=== PATIENT | male | born 1955 | race Caucasian/White ===

== ENCOUNTER 2019-11-21 21:11 | Inpatient (IN) | payer OTHER ==
[2019-11-21] MEDS: Albuterol/Ipratropium 3.0-0.5 MG/3 ML Neb Soln NEB PRN (21:20)
--- NOTE | 2019-11-21 21:56 | EDM.PDOC ---
ED HPI GENERAL MEDICAL PROBLEM - General Chief Complaint: General Stated Complaint: CANNOT BREATH Time Seen by Provider: 11/21/19 21:15 Source of Information: Reports: Patient History Limitations: Reports: No Limitations - History of Present Illness INITIAL COMMENTS - FREE TEXT/NARRATIVE: Patient presents to the ED for evaluation of difficulty breathing. He states he developed a dry cough 2 days ago and attributed that to seasonal allergies. 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 T\\He returned from a trip this afternoon and noticed he was having some difficulty catching his breath. This evening it got suddenly much worse and he could not catch his breath. He has not had a fever "that I know of" and denies chest pain. He has had a "scratchy throat" and some nasal drainage. He describes the cough as dry and feels like he is trying to get something out of his throat. 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 Does smoke 3-5 "[employer]" daily, does not drink alcohol. - Related Data Allergies Allergy/AdvReac Type Severity Reaction Status Date / Time No Known Allergies Allergy Verified 11/21/19 21:28 Home Meds: Home Meds Levothyroxine Sodium [Synthroid] 25 mcg PO ACBREAKFAST 01/27/16 [History] Lisinopril 10 mg PO DAILY 01/27/16 [History] Venlafaxine [Effexor] 150 mg PO DAILY 01/27/16 [History] Past Medical History HEENT History: Reports: Impaired Vision Cardiovascular History: Reports: Hypertension Respiratory History: Reports: Other (See Below) Musculoskeletal History: Reports: Fracture, Other (See Below) Other Musculoskeletal History: Hip Fx Neurological History: Reports: None. Denies: Seizure Psychiatric History: Reports: Depression Endocrine/Metabolic History: Reports: Multinodular Thyroid - Infectious Disease History Infectious Disease History: Reports: Chicken Pox - Past Surgical History HEENT Surgical History: Reports: Other (See Below) Musculoskeletal Surgical History: Reports: Other (See Below) Social & Family History - Family History Family Medical History: Noncontributory ED ROS GENERAL - Review of Systems Review Of Systems: See Below Constitutional: Reports: Chills, Diaphoresis. Denies: Fever HEENT: Reports: Rhinitis, Throat Pain. Denies: Ear Discharge, Ear Pain, Eye Discharge Respiratory: Reports: Shortness of Breath, Wheezing, Cough Cardiovascular: Denies: Chest Pain GI/Abdominal: Reports: Vomiting. Denies: Abdominal Pain, Diarrhea, Nausea Musculoskeletal: Reports: No Symptoms Skin: Reports: No Symptoms Neurological: Reports: No Symptoms ED EXAM, GENERAL - Physical Exam Exam: See Below Exam Limited By: No Limitations General Appearance: WD/WN, Severe Distress Eye Exam: Bilateral Eye: PERRL Ears: Normal External Exam, Normal Canal, Normal TMs Nose: Normal Inspection, Normal Mucosa, No Blood Throat/Mouth: Normal Inspection, Normal Oropharynx, No Airway Compromise Head: Atraumatic, Normocephalic Neck: Normal Inspection, Supple, Non-Tender, Full Range of Motion. No: Lymphadenopathy (R), Lymphadenopathy (L) Respiratory/Chest: Rhonchi, Wheezing, Accessory Muscle Use, Retractions, Other ( significant respiratory distress with substernal and intercostal restractions, tachypneic & hypoxic) Cardiovascular: Regular Rate, Rhythm Course - Vital Signs Last Recorded V/S: Last Vital Signs Temp 36.2 C 11/21/19 21:28 Pulse 92 11/21/19 21:51 Resp 20 11/21/19 21:51 BP 127/86 11/21/19 21:51 Pulse Ox 99 11/21/19 21:51 - Orders/Labs/Meds Orders: Active Orders 24 hr Category Date Time Status EKG Documentation Completion [RC] ASDIRECTED Care 11/21/19 21:59 Active RT Aerosol Therapy [RC] ASDIRECTED Care 11/21/19 22:06 Active Chest 1V Frontal [CR] Stat Exams 11/21/19 21:35 Ordered CORONAVIRUS COVID-19 PCR PHL [MREF] Stat Lab 11/21/19 21:36 Ordered CULTURE BLOOD [BC] Stat Lab 11/21/19 21:35 Ordered Albuterol/Ipratropium [DuoNeb 3.0-0.5 MG/3 ML] Med 11/21/19 21:20 Active 3 ml NEB Q2H PRN Sodium Chloride 0.9% [Saline Flush] Med 11/21/19 21:35 Active 10 ml FLUSH ASDIRECTED PRN Saline Lock Insert [OM.PC] Stat Oth 11/21/19 21:35 Ordered Medication Orders Acetaminophen (Tylenol) 650 mg PO Q4H PRN PRN Reason: Pain (Mild 1-3)/fever Albuterol/Ipratropium (Duoneb 3.0-0.5 Mg/3 Ml) 3 ml NEB Q2H PRN PRN Reason: Shortness of Breath Albuterol/Ipratropium (Duoneb 3.0-0.5 Mg/3 Ml) 3 ml NEB QID PRN PRN Reason: Shortness Of Breath/wheezing Azithromycin (Zithromax) 500 mg IV Q24H GABRIELA Ceftriaxone Sodium 1 gm/ (Sodium Chloride) 50 mls @ 100 mls/hr IV Q24H GABRIELA Ondansetron HCl (Zofran) 4 mg IV Q4H PRN PRN Reason: Nausea/Vomiting Sodium Chloride (Saline Flush) 10 ml FLUSH ASDIRECTED PRN PRN Reason: Keep Vein Open Labs: Laboratory Tests 11/21/19 11/21/19 Range/Units 21:35 21:35 WBC 9.0 (4.0-11.0) K/uL RBC 4.41 L (4.50-6.50) M/uL Hgb 13.7 (13.0-18.0) g/dL Hct 39.6 L (40.0-54.0) % MCV 90 (76-96) fL MCH 31.1 (27.0-32.0) pg MCHC 34.6 (31.0-35.0) g/dL RDW 14.4 (11.0-16.0) % Plt Count 185 (150-400) K/uL MPV 10.1 H (6.0-10.0) fL Neut % (Auto) 59.6 (45.0-70.0) % Lymph % (Auto) 27.4 (20.0-40.0) % [place] % (Auto) 9.5 (3.0-10.0) % Eos % (Auto) 2.8 (1.0-5.0) % Baso % (Auto) 0.7 H (0.0-0.5) % Neut # (Auto) 5.34 (2.00-7.50) K/uL Lymph # (Auto) 2.45 (1.50-4.00) K/uL [place] # (Auto) 0.85 H (0.20-0.80) K/uL Eos # (Auto) 0.25 (0.04-0.40) K/uL Baso # (Auto) 0.06 (0.02-0.10) K/uL Sodium 139 (136-145) mmol/L Potassium 4.1 (3.5-5.1) mmol/L Chloride 104 (98-107) mmol/L Carbon Dioxide 26.5 (21.0-32.0) mmol/L Anion Gap 12.6 (5.0-15.0) mmol/L BUN 10 (8-26) mg/dL Creatinine 1.09 D (0.70-1.30) mg/dL Est Cr Clr Drug Dosing 76.14 mL/min Estimated GFR (MDRD) > 60 (>60) MLS/MIN BUN/Creatinine Ratio 9.2 (6-25) Glucose 140 H D (74-100) mg/dL Calcium 8.4 L (8.5-10.1) mg/dL Troponin I < 0.017 (0.000-0.060) ng/mL Meds: Medications Generic Name Dose Route Start Last Admin Trade Name Freq PRN Reason Stop Dose Admin Acetaminophen 650 mg 11/21/19 22:17 Tylenol PO Q4H PRN Pain (Mild 1-3)/fever Albuterol/Ipratropium 3 ml 11/21/19 21:20 Duoneb 3.0-0.5 Mg/3 Ml NEB Q2H PRN Shortness of Breath Albuterol/Ipratropium 3 ml 11/21/19 22:17 Duoneb 3.0-0.5 Mg/3 Ml NEB QID PRN Shortness Of Breath/wheezing Azithromycin 500 mg 11/21/19 22:30 Zithromax IV Q24H GABRIELA Ceftriaxone Sodium 1 gm/ 50 mls @ 100 mls/hr 11/21/19 23:00 Sodium Chloride IV Q24H GABRIELA Ondansetron HCl 4 mg 11/21/19 22:17 Zofran IV Q4H PRN Nausea/Vomiting Sodium Chloride 10 ml 11/21/19 21:35 Saline Flush FLUSH ASDIRECTED PRN Keep Vein Open - Re-Assessments/Exams Free Text/Narrative Re-Assessment/Exam: 11/21/19 22:29 This patient presents to the ED for evaluation of difficulty breathing. History and clinical findings are most consistent with pneumonia. He had an excellent response to 1 duoneb administered in the ED with significant decrease in work of breathing, tachypnea, and hypoxia. He continues to require 10L oxygen via non -rebreather mask to maintain saturation > 92%. He will be admitted to the inpatient unit on observation status for continued care. Departure - Departure Time of Disposition: 22:30 Disposition: Refer to Observation Condition: Fair Clinical Impression: Pneumonia - Discharge Information *PRESCRIPTION DRUG MONITORING PROGRAM REVIEWED*: Not Applicable Sepsis Event Note - Evaluation Sepsis Screening Result: No Definite Risk - Focused Exam Vital Signs: Vital Signs Temp Pulse Resp BP Pulse Ox 11/21/19 21:51 92 20 127/86 99 11/21/19 21:40 95 11/21/19 21:31 95 11/21/19 21:28 36.2 C 101 H 18 174/88 H 80 L 11/21/19 21:22 36.2 C 10 L 22 H 174/88 H 80 L Date Exam was Performed: 11/21/19 Time Exam was Performed: 22:28 - My Orders Last 24 Hours: My Active Orders 11/21/19 21:20 Albuterol/Ipratropium [DuoNeb 3.0-0.5 MG/3 ML] 3 ml NEB Q2H PRN 11/21/19 21:35 Chest 1V Frontal [CR] Stat CULTURE BLOOD [BC] Stat Sodium Chloride 0.9% [Saline Flush] 10 ml FLUSH ASDIRECTED PRN Saline Lock Insert [OM.PC] Stat 11/21/19 21:36 CORONAVIRUS COVID-19 PCR PHL [MREF] Stat 11/21/19 21:59 EKG Documentation Completion [RC] ASDIRECTED 11/21/19 22:06 RT Aerosol Therapy [RC] ASDIRECTED - Assessment/Plan Last 24 Hours: My Active Orders 11/21/19 21:20 Albuterol/Ipratropium [DuoNeb 3.0-0.5 MG/3 ML] 3 ml NEB Q2H PRN 11/21/19 21:35 Chest 1V Frontal [CR] Stat CULTURE BLOOD [BC] Stat Sodium Chloride 0.9% [Saline Flush] 10 ml FLUSH ASDIRECTED PRN Saline Lock Insert [OM.PC] Stat 11/21/19 21:36 CORONAVIRUS COVID-19 PCR PHL [MREF] Stat 11/21/19 21:59 EKG Documentation Completion [RC] ASDIRECTED 11/21/19 22:06 RT Aerosol Therapy [RC] ASDIRECTED
[2019-11-21] MEDS ORDERED: Ondansetron 4 MG/2 ML SDV IV PRN (22:17)
[2019-11-21] MEDS ORDERED: Acetaminophen 325 MG Tab PO PRN (22:17)
[2019-11-21] MEDS: cefTRIAXone 1 GM in Sodium Chloride 0.9% 50 ML IV SCH (23:00)
--- NOTE | 2019-11-21 23:06 | PCM.HP.2 ---
H&P History of Present Illness - General Date of Service: 11/21/19 Admit Problem/Dx: Admission Diagnosis/Problem Admission Diagnosis/Problem Pneumonia Source of Information: Patient History Limitations: Reports: No Limitations - History of Present Illness Initial Comments - Free Text/Narative: This patient presents to the ED for evaluation of difficulty breathing. See ED record for detailed HPI. Onset of Symptoms: Reports: Sudden Symptom Onset Date: 11/19/19 Duration of Symptoms: Reports: Getting Worse Location: Reports: Chest Severity: Moderate Improves with: Reports: None Worsens with: Reports: None Context: Reports: Travel Associated Symptoms: Reports: Cough, Fever/Chills, Shortness of Breath. Denies : Headaches, Nausea/Vomiting, Weakness - Related Data Allergies/Adverse Reactions: Allergies Allergy/AdvReac Type Severity Reaction Status Date / Time No Known Allergies Allergy Verified 11/21/19 21:28 Home Medications: Home Meds Levothyroxine Sodium [Synthroid] 25 mcg PO ACBREAKFAST 01/27/16 [History] Lisinopril 10 mg PO DAILY 01/27/16 [History] Venlafaxine [Effexor] 150 mg PO DAILY 01/27/16 [History] Past Medical History HEENT History: Reports: Impaired Vision Cardiovascular History: Reports: Hypertension Respiratory History: Reports: Other (See Below) Musculoskeletal History: Reports: Fracture, Other (See Below) Other Musculoskeletal History: Hip Fx Neurological History: Reports: None. Denies: Seizure Psychiatric History: Reports: Depression Endocrine/Metabolic History: Reports: Multinodular Thyroid - Infectious Disease History Infectious Disease History: Reports: Chicken Pox - Past Surgical History HEENT Surgical History: Reports: Other (See Below) Musculoskeletal Surgical History: Reports: Other (See Below) Social & Family History - Family History Family Medical History: Noncontributory - Tobacco Use Smoking Status *Q: Current Every Day Smoker Years of Tobacco use: 34 Packs/Tins Daily: 0.5 - Caffeine Use Caffeine Use: Reports: Coffee - Recreational Drug Use Recreational Drug Use: No H&P Review of Systems - Review of Systems: Review Of Systems: See Below General: Reports: Chills, Diaphoresis. Denies: Fever, Decreased Appetite HEENT: Reports: No Symptoms, Rhinitis, Sore Throat. Denies: Ear Pain, Eye Pain , Headaches Pulmonary: Reports: Shortness of Breath, Wheezing, Cough. Denies: Sputum Cardiovascular: Reports: Dyspnea on Exertion. Denies: Chest Pain, Palpitations Gastrointestinal: Denies: Abdominal Pain, Diarrhea, Nausea, Vomiting Musculoskeletal: Reports: No Symptoms Skin: Reports: No Symptoms Neurological: Reports: No Symptoms Exam - Exam Exam: See Below - Vital Signs Vital Signs: Last Vital Signs Temp 36.9 C 11/21/19 22:17 Pulse 64 11/21/19 22:17 Resp 16 11/21/19 22:17 BP 72/40 L 11/21/19 22:17 Pulse Ox 99 11/21/19 21:51 Weight: 98.974 kg - Exam Quality Assessment: Supplemental Oxygen General: Alert, Oriented, Cooperative, Mild Distress HEENT: PERRLA, Conjunctiva Clear, EOMI, Mucosa Moist & [place], Nares Patent, Normal Nasal Septum, Posterior Pharynx Clear, Pupils Equal, Pupils Reactive Neck: Supple, Trachea Midline Lungs: Decreased Breath Sounds, Rhonchi, Other (mild intercostal restraction; some bilateral rhonchi) Cardiovascular: Regular Rate, Regular Rhythm GI/Abdominal Exam: Soft, Non-Tender, No Distention Extremities: Normal Inspection, Normal Range of Motion, Non-Tender, No Pedal Edema, Normal Capillary Refill Skin: Warm, Dry, Intact Neuro Extensive - Mental Status: Oriented x3, Normal Mood/Affect - Patient Data Lab Results Last 24 hrs: Laboratory Results - last 24 hr 11/21/19 11/21/19 Range/Units 21:35 21:35 WBC 9.0 (4.0-11.0) K/uL RBC 4.41 L (4.50-6.50) M/uL Hgb 13.7 (13.0-18.0) g/dL Hct 39.6 L (40.0-54.0) % MCV 90 (76-96) fL MCH 31.1 (27.0-32.0) pg MCHC 34.6 (31.0-35.0) g/dL RDW 14.4 (11.0-16.0) % Plt Count 185 (150-400) K/uL MPV 10.1 H (6.0-10.0) fL Neut % (Auto) 59.6 (45.0-70.0) % Lymph % (Auto) 27.4 (20.0-40.0) % [place] % (Auto) 9.5 (3.0-10.0) % Eos % (Auto) 2.8 (1.0-5.0) % Baso % (Auto) 0.7 H (0.0-0.5) % Neut # (Auto) 5.34 (2.00-7.50) K/uL Lymph # (Auto) 2.45 (1.50-4.00) K/uL [place] # (Auto) 0.85 H (0.20-0.80) K/uL Eos # (Auto) 0.25 (0.04-0.40) K/uL Baso # (Auto) 0.06 (0.02-0.10) K/uL Sodium 139 (136-145) mmol/L Potassium 4.1 (3.5-5.1) mmol/L Chloride 104 (98-107) mmol/L Carbon Dioxide 26.5 (21.0-32.0) mmol/L Anion Gap 12.6 (5.0-15.0) mmol/L BUN 10 (8-26) mg/dL Creatinine 1.09 D (0.70-1.30) mg/dL Est Cr Clr Drug Dosing 76.14 mL/min Estimated GFR (MDRD) > 60 (>60) MLS/MIN BUN/Creatinine Ratio 9.2 (6-25) Glucose 140 H D (74-100) mg/dL Calcium 8.4 L (8.5-10.1) mg/dL Troponin I < 0.017 (0.000-0.060) ng/mL Result Diagrams: 11/21/19 21:35 11/21/19 21:35 Baron Results Last 24 hrs: Microbiology 11/21/19 12:35 Influenza Type A Antigen Screen - Final Nasal, Right NEGATIVE INFLUENZA A VIRUS AG REFERENCE RANGE: NEGATIVE Influenza Type B Antigen Screen - Final NEGATIVE INFLUENZA B VIRUS AG REFERENCE RANGE: NEGATIVE EKG INTERPRETATION EKG Date: 11/21/19 Time: 20:54 Rhythm: NSR Rate (Beats/Min): 86 [place]: Normal P-Wave: Present QRS: Normal ST-T: Normal QT: Prolonged Comparison: NA - No Prior EKG Sepsis Event Note - Evaluation Sepsis Screening Result: No Definite Risk - Focused Exam Vital Signs: Vital Signs Temp Temp Pulse Resp BP Pulse Ox 03/26/20 22:17 36.9 C 64 16 72/40 L 11/21/19 21:51 92 20 127/86 99 11/21/19 21:40 95 11/21/19 21:31 95 11/21/19 21:28 36.2 C 101 H 18 174/88 H 80 L 11/21/19 21:22 36.2 C 10 L 22 H 174/88 H 80 L Date Exam was Performed: 11/21/19 Time Exam was Performed: 23:00 - Problem List (1) Pneumonia SNOMED Code(s): 263810809 ICD Code: J18.9 - PNEUMONIA, UNSPECIFIED ORGANISM Status: Acute Priority : High Current Visit: Yes Qualifiers: Pneumonia type: due to unspecified organism Laterality: bilateral Lung location: unspecified part of lung Qualified Code(s): J18.9 - Pneumonia, unspecified organism Problem List Initiated/Reviewed/Updated: Yes Orders Last 24hrs: Active Orders 24 hr Category Date Time Status Admission Status [Patient Status] [ADT] Routine ADT 11/21/19 22:16 Active Patient Status [ADT] Routine ADT 11/21/19 22:17 Active Ambulate [RC] PER UNIT ROUTINE Care 11/21/19 22:18 Active EKG Documentation Completion [RC] ASDIRECTED Care 11/21/19 21:59 Active Oxygen Therapy [RC] PRN Care 11/21/19 22:17 Active RT Aerosol Therapy [RC] ASDIRECTED Care 11/21/19 22:06 Active RT Aerosol Therapy [RC] ASDIRECTED Care 11/21/19 22:20 Active VTE/DVT Education [RC] Per Unit Routine Care 11/21/19 22:17 Active Vital Signs [RC] Q4H Care 11/21/19 22:17 Active Regular Diet [DIET] Diet 11/22/19 Breakfast Ordered Chest 1V Frontal [CR] Stat Exams 11/21/19 21:35 Taken CORONAVIRUS COVID-19 PCR PHL [MREF] Stat Lab 11/21/19 21:45 Ordered CULTURE BLOOD [BC] Stat Lab 11/21/19 21:40 Received Acetaminophen [Tylenol] Med 11/21/19 22:17 Active 650 mg PO Q4H PRN Albuterol/Ipratropium [DuoNeb 3.0-0.5 MG/3 ML] Med 11/21/19 21:20 Active 3 ml NEB Q2H PRN Albuterol/Ipratropium [DuoNeb 3.0-0.5 MG/3 ML] Med 11/21/19 22:17 Active 3 ml NEB QID PRN Azithromycin [Zithromax] Med 11/21/19 23:00 Active 500 mg IV Q24H Ondansetron [Zofran] Med 11/21/19 22:17 Active 4 mg IV Q4H PRN Sodium Chloride 0.9% [Saline Flush] Med 11/21/19 21:35 Active 10 ml FLUSH ASDIRECTED PRN cefTRIAXone [Rocephin] 1 gm Med 11/21/19 23:00 Active Sodium Chloride 0.9% [Normal Saline] 50 ml IV Q24H Saline Lock Insert [OM.PC] Stat Oth 11/21/19 21:35 Ordered Resuscitation Status Routine Resus Stat 11/21/19 22:17 Ordered Medication Orders Acetaminophen (Tylenol) 650 mg PO Q4H PRN PRN Reason: Pain (Mild 1-3)/fever Albuterol/Ipratropium (Duoneb 3.0-0.5 Mg/3 Ml) 3 ml NEB Q2H PRN PRN Reason: Shortness of Breath Albuterol/Ipratropium (Duoneb 3.0-0.5 Mg/3 Ml) 3 ml NEB QID PRN PRN Reason: Shortness Of Breath/wheezing Azithromycin (Zithromax) 500 mg IV Q24H GABRIELA Ceftriaxone Sodium 1 gm/ (Sodium Chloride) 50 mls @ 100 mls/hr IV Q24H GABRIELA Ondansetron HCl (Zofran) 4 mg IV Q4H PRN PRN Reason: Nausea/Vomiting Sodium Chloride (Saline Flush) 10 ml FLUSH ASDIRECTED PRN PRN Reason: Keep Vein Open Assessment/Plan Comment:: Ceftriaxone 1 gm q. 24 hours Azithromycin 500 mg q. 24 hours Supplemental oxygen to keep SaO2 >92% Covid-19 pending
--- NOTE | 2019-11-22 00:32 | CR ---
CLINICAL DATA: SOB. FRONTAL VIEW OF THE CHEST, 21 NOVEMBER 2019: Comparison made to a prior exam dated January 26, 2016. The heart size is at the upper limits of normal. There is calcification of the aortic arch. There are patchy infiltrates in both lungs, consistent with pneumonia. Congestive failure with pulmonary edema should be considered. No other significant findings. No pneumothorax. No pleural effusions. Follow up is recommended. Job: [id number] [facility]
[2019-11-22] MEDS: Albuterol/Ipratropium 3.0-0.5 MG/3 ML Neb Soln NEB PRN ×3 (11:14→17:14)
--- NOTE | 2019-11-22 11:22 | PCM.PN ---
- General Info Date of Service: 11/22/19 Admission Dx/Problem (Free Text): Admission Diagnosis/Problem Admission Diagnosis/Problem Pneumonia Subjective Update: Patient reports feeling better this morning. He had some shortness of breath after returning to bed from bathroom. He is down to 4 L per nasal cannula to keep saturations greater than 92%. Appetite decreased yet but is drinking fluids. Denies nausea, vomiting, or diarrhea. Continues to have a dry cough. Denies chest pain. Functional Status: Reports: Tolerating Diet - Review of Systems General: Denies: Fever HEENT: Denies: Ear Pain, Eye Pain, Headaches, Sore Throat Pulmonary: Reports: Shortness of Breath, Cough Cardiovascular: Denies: Chest Pain, Palpitations, Dyspnea on Exertion Gastrointestinal: Denies: Abdominal Pain, Diarrhea, Nausea, Vomiting Musculoskeletal: Reports: No Symptoms Skin: Reports: No Symptoms Neurological: Reports: No Symptoms - Patient Data Vitals - Most Recent: Last Vital Signs Temp 36.6 C 11/22/19 08:00 Pulse 58 L 11/22/19 08:00 Resp 14 11/22/19 08:00 BP 94/54 L 11/22/19 08:00 Pulse Ox 91 L 11/22/19 08:00 Weight - Most Recent: 98.974 kg Lab Results Last 24 Hours: Laboratory Results - last 24 hr 11/21/19 11/21/19 Range/Units 21:35 21:35 WBC 9.0 (4.0-11.0) K/uL RBC 4.41 L (4.50-6.50) M/uL Hgb 13.7 (13.0-18.0) g/dL Hct 39.6 L (40.0-54.0) % MCV 90 (76-96) fL MCH 31.1 (27.0-32.0) pg MCHC 34.6 (31.0-35.0) g/dL RDW 14.4 (11.0-16.0) % Plt Count 185 (150-400) K/uL MPV 10.1 H (6.0-10.0) fL Neut % (Auto) 59.6 (45.0-70.0) % Lymph % (Auto) 27.4 (20.0-40.0) % [place] % (Auto) 9.5 (3.0-10.0) % Eos % (Auto) 2.8 (1.0-5.0) % Baso % (Auto) 0.7 H (0.0-0.5) % Neut # (Auto) 5.34 (2.00-7.50) K/uL Lymph # (Auto) 2.45 (1.50-4.00) K/uL [place] # (Auto) 0.85 H (0.20-0.80) K/uL Eos # (Auto) 0.25 (0.04-0.40) K/uL Baso # (Auto) 0.06 (0.02-0.10) K/uL Sodium 139 (136-145) mmol/L Potassium 4.1 (3.5-5.1) mmol/L Chloride 104 (98-107) mmol/L Carbon Dioxide 26.5 (21.0-32.0) mmol/L Anion Gap 12.6 (5.0-15.0) mmol/L BUN 10 (8-26) mg/dL Creatinine 1.09 D (0.70-1.30) mg/dL Est Cr Clr Drug Dosing 76.14 mL/min Estimated GFR (MDRD) > 60 (>60) MLS/MIN BUN/Creatinine Ratio 9.2 (6-25) Glucose 140 H D (74-100) mg/dL Calcium 8.4 L (8.5-10.1) mg/dL Troponin I < 0.017 (0.000-0.060) ng/mL Baron Results Last 24 Hours: Microbiology 11/21/19 12:35 Influenza Type A Antigen Screen - Final Nasal, Right NEGATIVE INFLUENZA A VIRUS AG REFERENCE RANGE: NEGATIVE Influenza Type B Antigen Screen - Final NEGATIVE INFLUENZA B VIRUS AG REFERENCE RANGE: NEGATIVE Med Orders - Current: Current Medications Acetaminophen (Tylenol) 650 mg PO Q4H PRN PRN Reason: Pain (Mild 1-3)/fever Albuterol/Ipratropium (Duoneb 3.0-0.5 Mg/3 Ml) 3 ml NEB QID PRN PRN Reason: Shortness Of Breath/wheezing Last Admin: 11/22/19 11:14 Dose: 3 ml Azithromycin (Zithromax) 500 mg IV Q24H GABRIELA Last Admin: 11/22/19 00:00 Dose: 500 mg Ceftriaxone Sodium 1 gm/ (Sodium Chloride) 50 mls @ 100 mls/hr IV Q24H [facility] Last Admin: 11/21/19 23:00 Dose: 100 mls/hr Ondansetron HCl (Zofran) 4 mg IV Q4H PRN PRN Reason: Nausea/Vomiting Sodium Chloride (Saline Flush) 10 ml FLUSH ASDIRECTED PRN PRN Reason: Keep Vein Open Discontinued Medications Albuterol/Ipratropium (Duoneb 3.0-0.5 Mg/3 Ml) 3 ml NEB Q2H PRN PRN Reason: Shortness of Breath Stop: 11/22/19 00:30 Last Admin: 11/21/19 21:20 Dose: 3 ml - Exam Quality Assessment: Supplemental Oxygen General: Alert, Oriented, Cooperative, No Acute Distress HEENT: Pupils Equal, Pupils Reactive, EOMI, Mucous Membr. Moist/[place] Neck: Supple Lungs: Clear to Auscultation, Normal Respiratory Effort, Wheezing (occasional expiratory wheezes) GI/Abdominal Exam: Soft, Non-Tender, No Distention Skin: Warm, Dry, Intact Neurological: No New Focal Deficit Psy/Mental Status: Alert, Normal Affect, Normal Mood Sepsis Event Note - Evaluation Sepsis Screening Result: No Definite Risk - Focused Exam Vital Signs: Vital Signs Temp Pulse Resp BP Pulse Ox Pulse Ox 11/22/19 08:00 36.6 C 58 L 14 94/54 L 91 L 91 L 11/22/19 04:00 36.7 C 56 L 16 88/52 L 93 L 11/22/19 00:00 36.7 C 74 16 72/46 L 96 Date Exam was Performed: 11/22/19 Time Exam was Performed: 11:37 - Problem List & Annotations (1) Pneumonia SNOMED Code(s): 904927487 Code(s): J18.9 - PNEUMONIA, UNSPECIFIED ORGANISM Status: Acute Priority: High Current Visit: Yes Qualifiers: Pneumonia type: due to unspecified organism Laterality: bilateral Lung location: unspecified part of lung Qualified Code(s): J18.9 - Pneumonia, unspecified organism - Problem List Review Problem List Initiated/Reviewed/Updated: No - My Orders Last 24 Hours: My Active Orders 11/21/19 21:35 Sodium Chloride 0.9% [Saline Flush] 10 ml FLUSH ASDIRECTED PRN Saline Lock Insert [OM.PC] Stat 11/21/19 21:40 CULTURE BLOOD [BC] Stat 11/21/19 21:45 CORONAVIRUS COVID-19 PCR PHL [MREF] Stat 11/21/19 22:16 Admission Status [Patient Status] [ADT] Routine 11/21/19 22:17 Patient Status [ADT] Routine Oxygen Therapy [RC] 08,20 Vital Signs [RC] Q4H Acetaminophen [Tylenol] 650 mg PO Q4H PRN Albuterol/Ipratropium [DuoNeb 3.0-0.5 MG/3 ML] 3 ml NEB QID PRN Ondansetron [Zofran] 4 mg IV Q4H PRN Resuscitation Status Routine 11/21/19 22:20 RT Aerosol Therapy [RC] ASDIRECTED 11/21/19 23:00 Azithromycin [Zithromax] 500 mg IV Q24H cefTRIAXone [Rocephin] 1 gm Sodium Chloride 0.9% [Normal Saline] 50 ml IV Q24H 11/22/19 Breakfast Regular Diet [DIET] - Assessment Assessment:: Continue to wean supplemental oxygen to keep saturations greater than 92% - Plan Plan:: Ceftriaxone 1 gm q. 24 hours Azithromycin 500 mg q. 24 hours Supplemental oxygen to keep SaO2 >92% Covid-19 pending 11/22/2019 As above.
[2019-11-22] MEDS ORDERED: Mirtazapine 15 MG Tab PO SCH (20:00)
[2019-11-22] MEDS ORDERED: Mirtazapine 15 MG Tab PO ONE (20:15)
[2019-11-22] MEDS: Sodium Chloride 0.9% 10 ML Syringe FLUSH PRN (20:30)
[2019-11-22] MEDS ORDERED: Azithromycin 500 MG Vial ONE (22:41)
[2019-11-22] MEDS: Azithromycin 500 MG AdvVial IV SCH ×2 (23:00)
[2019-11-23] MEDS: cefTRIAXone 1 GM in Sodium Chloride 0.9% 50 ML IV SCH ×2 (00:21→22:01)
[2019-11-23] MEDS ORDERED: LEVOTHYROXINE 200 MCG PO SCH (07:00)
[2019-11-23] MEDS: Levothyroxine 25 MCG Tab PO SCH (09:44)
[2019-11-23] MEDS: Levothyroxine 100 MCG Tab PO SCH (09:44)
[2019-11-23] MEDS: Albuterol/Ipratropium 3.0-0.5 MG/3 ML Neb Soln NEB PRN ×2 (09:44→16:32)
[2019-11-23] MEDS: Sertraline 50 MG Tab PO SCH (09:45)
[2019-11-23] MEDS: Lisinopril 10 MG Tab PO SCH (09:45)
--- NOTE | 2019-11-23 16:09 | PCM.PN ---
- General Info Date of Service: 11/23/19 Admission Dx/Problem (Free Text): Admission Diagnosis/Problem Admission Diagnosis/Problem Pneumonia Subjective Update: Patient states he feels better today but continues to become SOB when up moving around in his room. VSS, continues afebrile. Oxygen saturation decreases to low 80s when out of supplemental oxygen-saturation remains greater than 92 in 2 L nasal canula. Appetite still fair, drinking fluids. No vomiting or diarrhea. Functional Status: Reports: Pain Controlled - Review of Systems General: Denies: Fever HEENT: Reports: No Symptoms Pulmonary: Reports: Shortness of Breath, Cough Cardiovascular: Denies: Chest Pain Gastrointestinal: Denies: Abdominal Pain, Diarrhea, Nausea, Vomiting Musculoskeletal: Reports: No Symptoms Skin: Reports: No Symptoms Neurological: Reports: No Symptoms - Patient Data Vitals - Most Recent: Last Vital Signs Temp 37.2 C 11/23/19 12:00 Pulse 87 11/23/19 12:00 Resp 15 11/23/19 12:00 BP 107/67 11/23/19 12:00 Pulse Ox 92 L 11/23/19 12:00 Weight - Most Recent: 98.974 kg I&O - Last 24 Hours: Intake & Output 11/23/19 11/23/19 11/23/19 06:59 14:59 22:59 Intake Total 100 Balance 100 Baron Results Last 24 Hours: Microbiology 11/21/19 21:40 Aerobic Blood Culture - Preliminary Blood NO GROWTH AFTER 1 DAY Anaerobic Blood Culture - Preliminary NO GROWTH AFTER 1 DAY Med Orders - Current: Current Medications Acetaminophen (Tylenol) 650 mg PO Q4H PRN PRN Reason: Pain (Mild 1-3)/fever Albuterol/Ipratropium (Duoneb 3.0-0.5 Mg/3 Ml) 3 ml NEB QID PRN PRN Reason: Shortness Of Breath/wheezing Last Admin: 11/23/19 09:44 Dose: 3 ml Azithromycin (Zithromax) 500 mg IV Q24H [facility] Last Admin: 11/22/19 23:00 Dose: 500 mg Doxazosin Mesylate (Cardura) 2 mg PO BEDTIME [facility] Ceftriaxone Sodium 1 gm/ (Sodium Chloride) 50 mls @ 100 mls/hr IV Q24H [facility] Last Admin: 11/23/19 00:21 Dose: 100 mls/hr Levothyroxine Sodium (Levothyroxine) 25 mcg PO ACBREAKFAST [facility] Last Admin: 11/23/19 09:44 Dose: 25 mcg Levothyroxine Sodium (Synthroid) 200 mcg PO ACBREAKFAST [facility] Last Admin: 11/23/19 09:44 Dose: 200 mcg Lisinopril (Prinivil) 10 mg PO DAILY [facility] Last Admin: 11/23/19 09:45 Dose: Not Given Methylprednisolone Sodium Succinate (Solu-Medrol) 125 mg IVPUSH Q12H [facility] Mirtazapine (Remeron) 15 mg PO BEDTIME [facility] Non-Formulary Medication (Cholecalciferol (Vitamin D3) [Vitamin D3]) 1 tab PO DAILY [facility] Non-Formulary Medication (Gabapentin Enacarbil [Horizant]) 600 mg PO BEDTIME [facility] Ondansetron HCl (Zofran) 4 mg IV Q4H PRN PRN Reason: Nausea/Vomiting Sertraline HCl (Zoloft) 50 mg PO DAILY [facility] Last Admin: 11/23/19 09:45 Dose: 50 mg Sodium Chloride (Saline Flush) 10 ml FLUSH ASDIRECTED PRN PRN Reason: Keep Vein Open Last Admin: 11/22/19 20:30 Dose: 10 ml Discontinued Medications Albuterol/Ipratropium (Duoneb 3.0-0.5 Mg/3 Ml) 3 ml NEB Q2H PRN PRN Reason: Shortness of Breath Stop: 11/22/19 00:30 Last Admin: 11/22/19 17:13 Dose: 3 ml Azithromycin (Zithromax) Confirm Administered Dose 500 mg .ROUTE .STK-MED ONE Stop: 11/22/19 22:42 Last Admin: 11/23/19 00:01 Dose: Not Given Mirtazapine (Remeron) 15 mg PO BEDTIME [facility] Last Admin: 11/22/19 20:20 Dose: 15 mg Mirtazapine (Remeron) 15 mg PO BEDTIME ONE Stop: 11/22/19 20:16 Last Admin: 11/22/19 20:30 Dose: 15 mg - Exam Quality Assessment: Supplemental Oxygen General: Alert, Oriented, Cooperative, No Acute Distress HEENT: Pupils Equal, Pupils Reactive, EOMI, Mucous Membr. Moist/[employer] Neck: Supple Lungs: Clear to Auscultation, Normal Respiratory Effort Cardiovascular: Regular Rate, Regular Rhythm GI/Abdominal Exam: Soft, Non-Tender, No Distention Back Exam: Normal Inspection Extremities: Normal Inspection Skin: Warm, Dry Neurological: No New Focal Deficit Sepsis Event Note - Evaluation Sepsis Screening Result: No Definite Risk - Focused Exam Vital Signs: Vital Signs Temp Pulse Resp BP BP Pulse Ox 11/23/19 12:00 37.2 C 87 15 107/67 92 L 11/23/19 09:45 127/67 11/23/19 08:00 36.3 C 92 15 127/67 92 L Date Exam was Performed: 11/23/19 Time Exam was Performed: 16:04 - Problem List & Annotations (1) Pneumonia SNOMED Code(s): 100145828 Code(s): J18.9 - PNEUMONIA, UNSPECIFIED ORGANISM Status: Acute Priority: High Current Visit: Yes Qualifiers: Pneumonia type: due to unspecified organism Laterality: bilateral Lung location: unspecified part of lung Qualified Code(s): J18.9 - Pneumonia, unspecified organism - Problem List Review Problem List Initiated/Reviewed/Updated: No - My Orders Last 24 Hours: My Active Orders 11/23/19 07:00 Levothyroxine 25 mcg PO ACBREAKFAST Levothyroxine [Synthroid] 200 mcg PO ACBREAKFAST 11/23/19 08:00 Sertraline [Zoloft] 50 mg PO DAILY lisinopriL [Prinivil] 10 mg PO DAILY 11/23/19 15:59 Admission Status [Patient Status] [ADT] Routine 11/23/19 16:00 methylPREDNISolone Sod Succ [Solu-MEDROL] 125 mg IVPUSH Q12H 11/23/19 20:00 Doxazosin [Cardura] 2 mg PO BEDTIME Gabapentin Enacarbil [Horizant] 600 mg PO BEDTIME Mirtazapine [Remeron] 15 mg PO BEDTIME 11/24/19 08:00 Cholecalciferol (Vitamin D3) [Vitamin D3] 1 tab PO DAILY - Assessment Assessment:: Continue to wean supplemental oxygen to keep saturations greater than 92% - Plan Plan:: Ceftriaxone 1 gm q. 24 hours Azithromycin 500 mg q. 24 hours Supplemental oxygen to keep SaO2 >92% Covid-19 pending 11/22/2019 As above. As above. Add solu-medrol 125 mg IV q. 12 hours Continue to try weaning to room air.
[2019-11-23] MEDS: methylPREDNISolone Sodium Succinate 125 MG/2 ML SDV IVPUSH SCH (16:22)
[2019-11-23] MEDS ORDERED: Azithromycin 500 MG Vial ONE (19:41)
[2019-11-23] MEDS ORDERED: DOXAZOSIN 2 MG PO SCH (20:00)
[2019-11-23] MEDS: Sodium Chloride 0.9% 10 ML Syringe FLUSH PRN (20:15)
[2019-11-23] MEDS: Mirtazapine 15 MG Tab PO SCH (20:19)
[2019-11-23] MEDS: Azithromycin 500 MG AdvVial IV SCH ×2 (20:19→23:04)
[2019-11-23] MEDS ORDERED: Doxazosin 2 MG Tab ONE (20:38)
[2019-11-23] MEDS ORDERED: Gabapentin 600 MG Tab ONE (20:39)
[2019-11-23] MEDS: Gabapentin 600 MG Tab PO SCH (20:59)
[2019-11-23] MEDS: Doxazosin 2 MG Tab PO SCH (20:59)
[2019-11-24] MEDS: methylPREDNISolone Sodium Succinate 125 MG/2 ML SDV IVPUSH SCH ×2 (04:00→16:15)
[2019-11-24] MEDS: Levothyroxine 25 MCG Tab PO SCH (08:11)
[2019-11-24] MEDS: Lisinopril 10 MG Tab PO SCH (08:11)
[2019-11-24] MEDS: Levothyroxine 100 MCG Tab PO SCH (08:11)
[2019-11-24] MEDS: Sertraline 50 MG Tab PO SCH (08:12)
[2019-11-24] MEDS: Cholecalciferol (Vitamin D3) 25 MCG Tab PO SCH (12:40)
[2019-11-24] MEDS: Albuterol/Ipratropium 3.0-0.5 MG/3 ML Neb Soln NEB PRN (14:42)
--- NOTE | 2019-11-24 15:16 | PCM.PN ---
- General Info Date of Service: 11/24/19 Admission Dx/Problem (Free Text): Admission Diagnosis/Problem Admission Diagnosis/Problem Pneumonia Subjective Update: VSS, afebrile. Continues to cough and require oxygen to keep saturations greater than 92%; down to 1L nasal cannula. Denies pain. Denies any new concerns or complaints. Functional Status: Reports: Pain Controlled - Review of Systems General: Denies: Fever HEENT: Reports: No Symptoms Pulmonary: Reports: No Symptoms Cardiovascular: Reports: No Symptoms Gastrointestinal: Reports: No Symptoms Genitourinary: Reports: No Symptoms Musculoskeletal: Reports: No Symptoms Skin: Reports: No Symptoms Neurological: Reports: No Symptoms - Patient Data Vitals - Most Recent: Last Vital Signs Temp 37.0 C 11/24/19 12:00 Pulse 84 11/24/19 12:00 Resp 16 11/24/19 12:00 BP 99/61 11/24/19 12:00 Pulse Ox 94 L 11/24/19 12:00 Weight - Most Recent: 98.974 kg I&O - Last 24 Hours: Intake & Output 11/24/19 11/24/19 11/24/19 06:59 14:59 22:59 Intake Total 50 Balance 50 Baron Results Last 24 Hours: Microbiology 11/21/19 21:40 Aerobic Blood Culture - Preliminary Blood NO GROWTH AFTER 2 DAYS Anaerobic Blood Culture - Preliminary NO GROWTH AFTER 2 DAYS Med Orders - Current: Current Medications Acetaminophen (Tylenol) 650 mg PO Q4H PRN PRN Reason: Pain (Mild 1-3)/fever Albuterol/Ipratropium (Duoneb 3.0-0.5 Mg/3 Ml) 3 ml NEB QID PRN PRN Reason: Shortness Of Breath/wheezing Last Admin: 11/24/19 14:42 Dose: 3 ml Azithromycin (Zithromax) 500 mg IV Q24H [facility] Last Admin: 11/23/19 23:04 Dose: Not Given Cholecalciferol (Vitamin D3) 125 mcg PO DAILY [facility] Last Admin: 11/24/19 12:40 Dose: 125 mcg Doxazosin Mesylate (Cardura) 2 mg PO BEDTIME [facility] Last Admin: 11/23/19 20:59 Dose: 2 mg Gabapentin (Neurontin) 600 mg PO BEDTIME [facility] Last Admin: 11/23/19 20:59 Dose: 600 mg Ceftriaxone Sodium 1 gm/ (Sodium Chloride) 50 mls @ 100 mls/hr IV Q24H [facility] Last Admin: 11/23/19 22:01 Dose: 100 mls/hr Levothyroxine Sodium (Levothyroxine) 25 mcg PO ACBREAKFAST [facility] Last Admin: 11/24/19 08:11 Dose: 25 mcg Levothyroxine Sodium (Synthroid) 200 mcg PO ACBREAKFAST [facility] Last Admin: 11/24/19 08:11 Dose: 200 mcg Lisinopril (Prinivil) 10 mg PO DAILY [facility] Last Admin: 11/24/19 08:11 Dose: Not Given Methylprednisolone Sodium Succinate (Solu-Medrol) 125 mg IVPUSH Q12H [facility] Last Admin: 11/24/19 04:00 Dose: 125 mg Mirtazapine (Remeron) 15 mg PO BEDTIME [facility] Last Admin: 11/23/19 20:19 Dose: 15 mg Ondansetron HCl (Zofran) 4 mg IV Q4H PRN PRN Reason: Nausea/Vomiting Sertraline HCl (Zoloft) 50 mg PO DAILY [facility] Last Admin: 11/24/19 08:12 Dose: 50 mg Sodium Chloride (Saline Flush) 10 ml FLUSH ASDIRECTED PRN PRN Reason: Keep Vein Open Last Admin: 11/23/19 20:15 Dose: 10 ml Discontinued Medications Albuterol/Ipratropium (Duoneb 3.0-0.5 Mg/3 Ml) 3 ml NEB Q2H PRN PRN Reason: Shortness of Breath Stop: 11/22/19 00:30 Last Admin: 11/22/19 17:13 Dose: 3 ml Azithromycin (Zithromax) Confirm Administered Dose 500 mg .ROUTE .STK-MED ONE Stop: 11/22/19 22:42 Last Admin: 11/23/19 00:01 Dose: Not Given Azithromycin (Zithromax) Confirm Administered Dose 500 mg .ROUTE .STK-MED ONE Stop: 11/23/19 19:42 Last Admin: 11/23/19 20:21 Dose: Not Given Doxazosin Mesylate (Cardura) Confirm Administered Dose 2 mg .ROUTE .STK-MED ONE Stop: 11/23/19 20:39 Last Admin: 11/23/19 20:50 Dose: Not Given Gabapentin (Neurontin) Confirm Administered Dose 600 mg .ROUTE .STK-MED ONE Stop: 11/23/19 20:40 Last Admin: 11/23/19 20:50 Dose: Not Given Mirtazapine (Remeron) 15 mg PO BEDTIME [facility] Last Admin: 11/22/19 20:20 Dose: 15 mg Mirtazapine (Remeron) 15 mg PO BEDTIME ONE Stop: 11/22/19 20:16 Last Admin: 11/22/19 20:30 Dose: 15 mg (Gabapentin Enacarbil [Horizant] 600 Mg)*Pt Own Med* 0 each PO BEDTIME [facility] Last Admin: 11/23/19 20:50 Dose: Not Given Doxazosin 2 Mg Tab* (Pt Own Med*) 0 each PO BEDTIME [facility] Last Admin: 11/23/19 20:50 Dose: Not Given - Exam Quality Assessment: Supplemental Oxygen General: Alert, Oriented HEENT: Pupils Equal, Pupils Reactive, EOMI, Mucous Membr. Moist/[place] Neck: Supple Lungs: Clear to Auscultation, Normal Respiratory Effort Cardiovascular: Regular Rate, Regular Rhythm Skin: Warm, Dry, Intact Neurological: No New Focal Deficit Psy/Mental Status: Alert, Normal Affect Sepsis Event Note - Evaluation Sepsis Screening Result: No Definite Risk - Focused Exam Vital Signs: Vital Signs Temp Temp Pulse Resp BP BP Pulse Ox 11/24/19 12:00 37.0 C 84 16 99/61 94 L 11/24/19 08:11 101/55 L 11/24/19 08:00 36.4 C 65 16 101/55 L 95 11/24/19 04:00 35.9 C L 65 18 94/47 L 93 L Date Exam was Performed: 11/24/19 Time Exam was Performed: 15:13 - Problem List & Annotations (1) Pneumonia SNOMED Code(s): 594853926 Code(s): J18.9 - PNEUMONIA, UNSPECIFIED ORGANISM Status: Acute Priority: High Current Visit: Yes Qualifiers: Pneumonia type: due to unspecified organism Laterality: bilateral Lung location: unspecified part of lung Qualified Code(s): J18.9 - Pneumonia, unspecified organism - Problem List Review Problem List Initiated/Reviewed/Updated: No - My Orders Last 24 Hours: My Active Orders 11/23/19 15:59 Admission Status [Patient Status] [ADT] Routine 11/23/19 16:00 methylPREDNISolone Sod Succ [Solu-MEDROL] 125 mg IVPUSH Q12H 11/23/19 20:00 Mirtazapine [Remeron] 15 mg PO BEDTIME 11/24/19 08:00 Cholecalciferol (Vitamin D3) [Vitamin D3] 125 mcg PO DAILY 11/24/19 20:00 Doxazosin [Cardura] 2 mg PO BEDTIME Gabapentin [Neurontin] 600 mg PO BEDTIME - Assessment Assessment:: Continue to wean supplemental oxygen to keep saturations greater than 92% - Plan Plan:: Ceftriaxone 1 gm q. 24 hours Azithromycin 500 mg q. 24 hours Supplemental oxygen to keep SaO2 >92% Covid-19 pending 11/22/2019 As above. 11/23/2019 As above. Add solu-medrol 125 mg IV q. 12 hours Continue to try weaning to room air. 11/24/2019 As above.
[2019-11-24] MEDS: Sodium Chloride 0.9% 10 ML Syringe FLUSH PRN ×2 (19:43→21:34)
[2019-11-24] MEDS ORDERED: Azithromycin 500 MG Vial ONE (21:21)
[2019-11-24] MEDS: Azithromycin 500 MG AdvVial IV SCH (21:36)
[2019-11-24] MEDS: Mirtazapine 15 MG Tab PO SCH (21:37)
[2019-11-24] MEDS: Gabapentin 600 MG Tab PO SCH (21:37)
[2019-11-24] MEDS: Doxazosin 2 MG Tab PO SCH (21:38)
[2019-11-24] MEDS: cefTRIAXone 1 GM in Sodium Chloride 0.9% 50 ML IV SCH (22:58)
[2019-11-25] MEDS: Azithromycin 500 MG AdvVial IV SCH (01:05)
[2019-11-25] MEDS: methylPREDNISolone Sodium Succinate 125 MG/2 ML SDV IVPUSH SCH (03:50)
[2019-11-25] MEDS: Levothyroxine 25 MCG Tab PO SCH (07:58)
[2019-11-25] MEDS: Levothyroxine 100 MCG Tab PO SCH (07:58)
[2019-11-25] MEDS ORDERED: Azithromycin 500 MG Tab PO ONE (08:02)
[2019-11-25] MEDS: Cholecalciferol (Vitamin D3) 25 MCG Tab PO SCH (08:02)
[2019-11-25] MEDS: Lisinopril 10 MG Tab PO SCH (08:02)
[2019-11-25] MEDS ORDERED: predniSONE 20 MG Tab PO ONE (08:03)
[2019-11-25] MEDS: Sertraline 50 MG Tab PO SCH (08:03)
[2019-11-25] MEDS: Albuterol/Ipratropium 3.0-0.5 MG/3 ML Neb Soln NEB PRN (10:15)
[2019-11-25] MEDS ORDERED: predniSONE 20 MG Tab PO SCH (10:30)
[2019-11-25 12:42] VITALS: BP 103/65; PULSE 80
--- NOTE | 2019-11-25 13:11 | PCM.DCSUM1 ---
Discharge Summary - Hospital Course HPI Initial Comments: This patient was admitted to the inpatient unit on 11/21/2019 with a diagnosis of pneumonia. He initially required a significant amount of supplemental oxygen to keep his saturations greater than 92%. Since admission with antibiotics, steroids, and supplemental oxygen he has improved and is able to tolerate room air. He still has some cough but it is significantly decreased. His appetite is improving and he has not had any vomiting or diarrhea. He denies chest pain, headache, other concerns or complaints. Diagnosis: Stroke: No - Discharge Data Discharge Date: 11/25/19 Discharge Disposition: Home, Self-Care 01 Condition: Good - Referral to Home Health Primary Care Physician: PCP None - Discharge Diagnosis/Problem(s) (1) Pneumonia SNOMED Code(s): 514776034 ICD Code: J18.9 - PNEUMONIA, UNSPECIFIED ORGANISM Status: Acute Priority : High Current Visit: Yes Qualifiers: Pneumonia type: due to unspecified organism Laterality: bilateral Lung location: unspecified part of lung Qualified Code(s): J18.9 - Pneumonia, unspecified organism - Discharge Plan *PRESCRIPTION DRUG MONITORING PROGRAM REVIEWED*: Not Applicable Home Medications: Home Meds Lisinopril 10 mg PO DAILY 01/27/16 [History] Cholecalciferol (Vitamin D3) [Vitamin D3] 1 tab PO DAILY 11/22/19 [History] Gabapentin Enacarbil [Horizant] 600 mg PO BEDTIME 11/22/19 [History] Levothyroxine 25 mcg PO ACBREAKFAST 11/22/19 [History] Levothyroxine 200 mcg PO ACBREAKFAST 11/22/19 [History] Mirtazapine 15 mg PO BEDTIME 11/22/19 [History] Sertraline [Zoloft] 1 tab PO DAILY 11/22/19 [History] Oxygen Therapy Mode: Room Air Patient Handouts: Community-Acquired Pneumonia, Adult, [id number] Forms: ED Department Discharge Referrals: PCP,None [Primary Care Provider] - - Discharge Summary/Plan Comment DC Time >30 min.: Yes - General Info Admission Dx/Problem (Free Text: Admission Diagnosis/Problem Admission Diagnosis/Problem Pneumonia Subjective Update: Doing well; VSS, afebrile. Tolerating room air. Functional Status: Reports: Pain Controlled, Tolerating Diet, Ambulating, Urinating - Review of Systems General: Denies: Fever, Chills HEENT: Reports: No Symptoms Pulmonary: Reports: Cough. Denies: Shortness of Breath Cardiovascular: Denies: Chest Pain Gastrointestinal: Denies: Abdominal Pain, Diarrhea, Nausea, Vomiting Genitourinary: Reports: No Symptoms Skin: Reports: No Symptoms - Patient Data Vitals - Most Recent: Last Vital Signs Temp 36.8 C 11/25/19 12:00 Pulse 80 11/25/19 12:00 Resp 16 11/25/19 12:00 BP 103/65 11/25/19 12:00 Pulse Ox 91 L 11/25/19 12:00 Weight - Most Recent: 98.974 kg I&O - Last 24 hours: Intake & Output 11/24/19 11/25/19 11/25/19 22:59 06:59 14:59 Intake Total 50 Balance 50 RUBINA Results - Last 24 hrs: Microbiology 11/21/19 21:45 Coronavirus RNA (PCR) - Final Nasopharynx, Unspecified 11/21/19 21:40 Aerobic Blood Culture - Preliminary Blood NO GROWTH AFTER 3 DAYS Anaerobic Blood Culture - Preliminary NO GROWTH AFTER 3 DAYS Med Orders - Current: Current Medications Acetaminophen (Tylenol) 650 mg PO Q4H PRN PRN Reason: Pain (Mild 1-3)/fever Albuterol/Ipratropium (Duoneb 3.0-0.5 Mg/3 Ml) 3 ml NEB QID PRN PRN Reason: Shortness Of Breath/wheezing Last Admin: 11/25/19 10:15 Dose: 3 ml Cholecalciferol (Vitamin D3) 125 mcg PO DAILY [facility] Last Admin: 11/25/19 08:02 Dose: 125 mcg Doxazosin Mesylate (Cardura) 2 mg PO BEDTIME [facility] Last Admin: 11/24/19 21:38 Dose: 2 mg Gabapentin (Neurontin) 600 mg PO BEDTIME [facility] Last Admin: 11/24/19 21:37 Dose: 600 mg Levothyroxine Sodium (Levothyroxine) 25 mcg PO ACBREAKFAST REPL[facility]ED [facility] Last Admin: 11/25/19 07:58 Dose: 25 mcg Levothyroxine Sodium (Synthroid) 200 mcg PO ACBREAKFAST [facility]PL[facility]ED [facility] Last Admin: 11/25/19 07:58 Dose: 200 mcg Lisinopril (Prinivil) 10 mg PO DAILY [facility] Last Admin: 11/25/19 08:02 Dose: Not Given Mirtazapine (Remeron) 15 mg PO BEDTIME [facility] Last Admin: 11/24/19 21:37 Dose: 15 mg Ondansetron HCl (Zofran) 4 mg IV Q4H PRN PRN Reason: Nausea/Vomiting Prednisone (Prednisone) 40 mg PO ASDIRECTED REPLACED BY [facility] Stop: 11/25/19 23:59 Sertraline HCl (Zoloft) 50 mg PO DAILY [facility] Last Admin: 11/25/19 08:03 Dose: 50 mg Discontinued Medications Albuterol/Ipratropium (Duoneb 3.0-0.5 Mg/3 Ml) 3 ml NEB Q2H PRN PRN Reason: Shortness of Breath Stop: 11/22/19 00:30 Last Admin: 11/22/19 17:13 Dose: 3 ml Azithromycin (Zithromax) 500 mg IV Q24H [facility]PL[facility] Last Admin: 11/25/19 01:05 Dose: Not Given Azithromycin (Zithromax) Confirm Administered Dose 500 mg .ROUTE .ST-MED ONE Stop: 11/22/19 22:42 Last Admin: 11/23/19 00:01 Dose: Not Given Azithromycin (Zithromax) Confirm Administered Dose 500 mg .ROUTE .STK-MED ONE Stop: 11/23/19 19:42 Last Admin: 11/23/19 20:21 Dose: Not Given Azithromycin (Zithromax) Confirm Administered Dose 500 mg .ROUTE .STK-MED ONE Stop: 11/24/19 21:22 Last Admin: 11/24/19 21:37 Dose: Not Given Azithromycin (Zithromax) 500 mg PO ONETIME ONE Stop: 11/25/19 08:03 Last Admin: 11/25/19 10:29 Dose: 500 mg Doxazosin Mesylate (Cardura) Confirm Administered Dose 2 mg .ROUTE .STK-MED ONE Stop: 11/23/19 20:39 Last Admin: 11/23/19 20:50 Dose: Not Given Gabapentin (Neurontin) Confirm Administered Dose 600 mg .ROUTE .STK-MED ONE Stop: 11/23/19 20:40 Last Admin: 11/23/19 20:50 Dose: Not Given Ceftriaxone Sodium 1 gm/ (Sodium Chloride) 50 mls @ 100 mls/hr IV Q24H REPLACED BY [facility] Last Admin: 03/29/20 22:58 Dose: 100 mls/hr Methylprednisolone Sodium Succinate (Solu-Medrol) 125 mg IVPUSH Q12H [facility] Last Admin: 11/25/19 03:50 Dose: 125 mg Mirtazapine (Remeron) 15 mg PO BEDTIME [facility] Last Admin: 11/22/19 20:20 Dose: 15 mg Mirtazapine (Remeron) 15 mg PO BEDTIME ONE Stop: 11/22/19 20:16 Last Admin: 11/22/19 20:30 Dose: 15 mg (Gabapentin Enacarbil [Horizant] 600 Mg)*Pt Own Med* 0 each PO BEDTIME [facility] Last Admin: 11/23/19 20:50 Dose: Not Given Doxazosin 2 Mg Tab* (Pt Own Med*) 0 each PO BEDTIME [facility] Last Admin: 11/23/19 20:50 Dose: Not Given Prednisone (Prednisone) 40 mg PO ONETIME ONE Stop: 11/25/19 08:04 Last Admin: 11/25/19 10:29 Dose: 40 mg Sodium Chloride (Saline Flush) 10 ml FLUSH ASDIRECTED PRN PRN Reason: Keep Vein Open Last Admin: 11/24/19 21:34 Dose: 10 ml - Exam General: Reports: Alert, Oriented, Cooperative, No Acute Distress HEENT: Reports: Pupils Equal, Pupils Reactive, EOMI, Mucous Membr. Moist/[place] Neck: Reports: Supple Lungs: Reports: Clear to Auscultation, Normal Respiratory Effort Cardiovascular: Reports: Regular Rate, Regular Rhythm GI/Abdominal Exam: Soft, Non-Tender, No Distention Back Exam: Reports: Normal Inspection Extremities: Normal Inspection, Normal Range of Motion, No Pedal Edema, Normal Capillary Refill Skin: Reports: Warm, Dry, Intact Neurological: Reports: No New Focal Deficit Psy/Mental Status: Reports: Alert, Normal Affect, Normal Mood
== END 2019-11-25 14:05 | disposition home or self-care (01) | DRG 195 ==
LOC: LB.ED 21:11 → LB.MS 22:16 → OBSVTOIN 11-23 15:59
PROVIDERS: ADMIT Nurse Practitioner; ATTEND Nurse Practitioner
DX: J18.9 Pneumonia, unspecified organism (principal); E03.9 Hypothyroidism, unspecified; H54.7 Unspecified visual loss; I10 Essential (primary) hypertension; F32.9 Major depressive disorder, single episode, unspecified; E04.2 Nontoxic multinodular goiter; F17.210 Nicotine dependence, cigarettes, uncomplicated; Z79.890 Hormone replacement therapy; Z79.899 Other long term (current) drug therapy
CPT/HCPCS: 36415; 71045; 80048; 84484; 85025; 87040; 87804; 87804-59; 93005; 96365; 96366; 96367; 99285-25; A9270-GY; G0378; J0456; J0696; J2930; J7050; J7620-GY; U0001; U0002

== ENCOUNTER 2019-12-26 09:08 | Inpatient (IN) | payer MEDICAID ==
[2019-12-26] MEDS ORDERED: Albuterol/Ipratropium 3.0-0.5 MG/3 ML Neb Soln NEB ONE (09:57)
[2019-12-26] MEDS ORDERED: Azithromycin 500 MG in Sodium Chloride 0.9% 250 ML IV ONE (09:58)
--- NOTE | 2019-12-26 10:01 | EDM.PDOC ---
ED HPI GENERAL MEDICAL PROBLEM - General Stated Complaint: SOB, WEAKNESS Time Seen by Provider: 12/26/19 09:44 Source of Information: Reports: Patient History Limitations: Reports: No Limitations - History of Present Illness INITIAL COMMENTS - FREE TEXT/NARRATIVE: Elías presents with increased work of breathing. He states that he has never really been 1 to get sick since at least 2005. He does have a longstanding smoking history, but does not typically get infections that involve his lungs to any certain extent nor cause sputum production. He is an over the road manager materials management and notes that he has been down to the [facility]. He was hospitalized here previously, whereby a COVID swab was obtained and eventually negative. He did receive nebulizer treatments at that hospital stay, which he found to be somewhat beneficial. He does not have a productive cough at this point. His O2 saturation was 85% upon arrival. He believes that he usually runs 92% on room air, but is not exactly certain. He does not want to take supplemental oxygen. It is documented that his sats were in the mid 80s at his last hospital stay. He was treated with a cephalosporin, azithromycin, steroids, and nebs. He feels like he just never really got any better, at least not achieving his baseline, but had a change here over the last day or so where he is completely certain of a subjective difficulty with being able to catch his breath. Review of his ER note reveals that he actually was noted to have some documented hypotension. - Related Data Allergies Allergy/AdvReac Type Severity Reaction Status Date / Time Milk Containing Products Allergy Airway Verified 11/22/19 08:17 Tightness povidone-iodine Allergy Hives Verified 11/22/19 01:11 [From Betadine] soap [From Betadine] Allergy Hives Verified 11/22/19 01:11 Home Meds: Home Meds Lisinopril 10 mg PO DAILY 01/27/16 [History] Cholecalciferol (Vitamin D3) [Vitamin D3] 1 tab PO DAILY 11/22/19 [History] Gabapentin Enacarbil [Horizant] 600 mg PO BEDTIME 11/22/19 [History] Levothyroxine 25 mcg PO ACBREAKFAST 11/22/19 [History] Levothyroxine 200 mcg PO ACBREAKFAST 11/22/19 [History] Mirtazapine 15 mg PO BEDTIME 11/22/19 [History] Sertraline [Zoloft] 1 tab PO DAILY 11/22/19 [History] Past Medical History HEENT History: Reports: Impaired Vision Cardiovascular History: Reports: Hypertension Respiratory History: Reports: Other (See Below) Musculoskeletal History: Reports: Fracture, Other (See Below) Other Musculoskeletal History: Hip Fx Neurological History: Reports: None. Denies: Seizure Psychiatric History: Reports: Depression Endocrine/Metabolic History: Reports: Multinodular Thyroid - Infectious Disease History Infectious Disease History: Reports: Chicken Pox - Past Surgical History HEENT Surgical History: Reports: Other (See Below) Musculoskeletal Surgical History: Reports: Other (See Below) Social & Family History - Family History Family Medical History: Noncontributory - Caffeine Use Caffeine Use: Reports: Coffee ED ROS GENERAL - Review of Systems Review Of Systems: Comprehensive ROS is negative, except as noted in HPI. ED EXAM, GENERAL - Physical Exam Exam: See Below Exam Limited By: No Limitations General Appearance: Alert, WD/WN, No Apparent Distress Nose: Normal Inspection Throat/Mouth: Normal Inspection, Normal Gums, Normal Oropharynx, Normal Voice, No Airway Compromise Head: Atraumatic, Normocephalic Neck: Normal Inspection, Supple, Non-Tender, Full Range of Motion Respiratory/Chest: No Respiratory Distress, Lungs Clear, Normal Breath Sounds, Chest Non-Tender Cardiovascular: Regular Rate, Rhythm, No Murmur GI/Abdominal: Normal Bowel Sounds, Soft, Non-Tender, No Distention Extremities: Normal Inspection, Normal Range of Motion, Non-Tender, No Pedal Edema, Normal Capillary Refill Neurological: Alert, Oriented, Normal Cognition, No Motor/Sensory Deficits Psychiatric: Normal Affect, Normal Mood Skin Exam: Warm, Dry, Intact Course - Vital Signs Last Recorded V/S: Last Vital Signs Temp 98.0 F 12/26/19 18:13 Pulse 78 12/26/19 18:13 Resp 18 12/26/19 18:13 BP 118/52 L 12/26/19 18:13 Pulse Ox 91 L 12/26/19 18:13 - Orders/Labs/Meds Orders: Active Orders 24 hr Category Date Time Status Cardiac Monitoring [RC] .As Directed Care 12/26/19 09:57 Active EKG Documentation Completion [RC] ASDIRECTED Care 12/26/19 09:57 Active RT Aerosol Therapy [RC] ASDIRECTED Care 12/26/19 09:57 Active CORONAVIRUS COVID-19 PCR PHL Routine Lab 12/26/19 12:12 Received CULTURE SPUTUM + SMEAR [RM] Stat Lab 12/26/19 09:58 Ordered Isolation [COMM] Routine Oth 12/26/19 09:59 Active EKG 12 Lead [EK] Stat Ther 12/26/19 09:56 Ordered Medication Orders Acetaminophen (Tylenol) 650 mg PO Q4H PRN PRN Reason: analgesia/fever Albuterol/Ipratropium (Duoneb 3.0-0.5 Mg/3 Ml) 3 ml NEB Q6H [facility] Last Admin: 12/26/19 16:40 Dose: 3 ml Enoxaparin Sodium (Lovenox) 40 mg SUBCUT DAILY [facility] Last Admin: 12/26/19 18:14 Dose: 40 mg Azithromycin 500 mg/ Sodium (Chloride) 250 mls @ 250 mls/hr IV Q24H GABRIELA Piperacillin Sod/Tazobactam (Sod 3.375 gm/ Sodium Chloride) 100 mls @ 100 mls/ hr IV Q6H [facility] Lisinopril (Prinivil) 2.5 mg PO DAILY [facility] Last Admin: 12/26/19 17:59 Dose: 2.5 mg Magnesium Hydroxide (Milk Of Magnesia) 30 ml PO BID PRN PRN Reason: Constipation Nicotine (Habitrol) 21 mg TRDERM DAILY PRN PRN Reason: Withdrawal Symptoms Nicotine Polacrilex (Commit) 2 - 4 mg BUCCAL Q2H PRN PRN Reason: Withdrawal Symptoms Nicotine Polacrilex (Nicorelief) 4 mg CHEW Q2H PRN PRN Reason: smoking cessation Ondansetron HCl (Zofran) 4 mg IVPUSH Q6H PRN PRN Reason: Nausea/Vomiting Labs: Laboratory Tests 12/26/19 12/26/19 12/26/19 Range/Units 10:15 10:15 10:15 WBC 6.5 D (4.0-11.0) K/uL RBC 4.29 L (4.50-6.50) M/uL Hgb 13.3 (13.0-18.0) g/dL Hct 38.6 L (40.0-54.0) % MCV 90 (76-96) fL MCH 31.0 (27.0-32.0) pg MCHC 34.5 (31.0-35.0) g/dL RDW 14.7 (11.0-16.0) % Plt Count 211 (150-400) K/uL MPV 9.8 (6.0-10.0) fL Neut % (Auto) 61.3 (45.0-70.0) % Lymph % (Auto) 23.1 (20.0-40.0) % Leon % (Auto) 10.6 H (3.0-10.0) % Eos % (Auto) 3.5 (1.0-5.0) % Baso % (Auto) 1.5 H (0.0-0.5) % Neut # (Auto) 3.97 (2.00-7.50) K/uL Lymph # (Auto) 1.50 (1.50-4.00) K/uL Leon # (Auto) 0.69 (0.20-0.80) K/uL Eos # (Auto) 0.23 (0.04-0.40) K/uL Baso # (Auto) 0.10 (0.02-0.10) K/uL D-Dimer, Quantitative (0-400) ng/mL Sodium 141 (136-145) mmol/L Potassium 4.4 (3.5-5.1) mmol/L Chloride 106 (98-107) mmol/L Carbon Dioxide 24.1 (21.0-32.0) mmol/L Anion Gap 15.3 H (5.0-15.0) mmol/L BUN 8 (8-26) mg/dL Creatinine 0.87 D (0.70-1.30) mg/dL Est Cr Clr Drug Dosing 99.73 mL/min Estimated GFR (MDRD) > 60 (>60) MLS/MIN BUN/Creatinine Ratio 9.2 (6-25) Glucose 108 H (74-100) mg/dL Lactic Acid (0.4-2.0) mmol/L Calcium 8.2 L (8.5-10.1) mg/dL Magnesium (1.8-2.4) mg/dL Total Bilirubin 0.5 (0.0-1.0) mg/dL AST 32 (15-37) U/L ALT 36 (12-78) U/L Alkaline Phosphatase 78 (46-116) U/L Troponin I 0.030 D (0.000-0.060) ng/mL C-Reactive Protein (0.0-3.0) mg/L B-Natriuretic Peptide 51808 H (0-125) pg/mL Total Protein 6.3 L (6.4-8.2) g/dL Albumin 3.5 (3.4-5.0) g/dL Globulin 2.8 (2.2-4.2) g/dL Albumin/Globulin Ratio 1.2 (0.8-2.0) 12/26/19 12/26/19 12/26/19 Range/Units 10:15 10:15 10:15 WBC (4.0-11.0) K/uL RBC (4.50-6.50) M/uL Hgb (13.0-18.0) g/dL Hct (40.0-54.0) % MCV (76-96) fL MCH (27.0-32.0) pg MCHC (31.0-35.0) g/dL RDW (11.0-16.0) % Plt Count (150-400) K/uL MPV (6.0-10.0) fL Neut % (Auto) (45.0-70.0) % Lymph % (Auto) (20.0-40.0) % Leon % (Auto) (3.0-10.0) % Eos % (Auto) (1.0-5.0) % Baso % (Auto) (0.0-0.5) % Neut # (Auto) (2.00-7.50) K/uL Lymph # (Auto) (1.50-4.00) K/uL Leon # (Auto) (0.20-0.80) K/uL Eos # (Auto) (0.04-0.40) K/uL Baso # (Auto) (0.02-0.10) K/uL D-Dimer, Quantitative 1430 H (0-400) ng/mL Sodium (136-145) mmol/L Potassium (3.5-5.1) mmol/L Chloride (98-107) mmol/L Carbon Dioxide (21.0-32.0) mmol/L Anion Gap (5.0-15.0) mmol/L BUN (8-26) mg/dL Creatinine (0.70-1.30) mg/dL Est Cr Clr Drug Dosing mL/min Estimated GFR (MDRD) (>60) MLS/MIN BUN/Creatinine Ratio (6-25) Glucose (74-100) mg/dL Lactic Acid (0.4-2.0) mmol/L Calcium (8.5-10.1) mg/dL Magnesium 1.7 L (1.8-2.4) mg/dL Total Bilirubin (0.0-1.0) mg/dL AST (15-37) U/L ALT (12-78) U/L Alkaline Phosphatase (46-116) U/L Troponin I (0.000-0.060) ng/mL C-Reactive Protein 8.3 H (0.0-3.0) mg/L B-Natriuretic Peptide (0-125) pg/mL Total Protein (6.4-8.2) g/dL Albumin (3.4-5.0) g/dL Globulin (2.2-4.2) g/dL Albumin/Globulin Ratio (0.8-2.0) 04/30/20 Range/Units 10:45 WBC (4.0-11.0) K/uL RBC (4.50-6.50) M/uL Hgb (13.0-18.0) g/dL Hct (40.0-54.0) % MCV (76-96) fL MCH (27.0-32.0) pg MCHC (31.0-35.0) g/dL RDW (11.0-16.0) % Plt Count (150-400) K/uL MPV (6.0-10.0) fL Neut % (Auto) (45.0-70.0) % Lymph % (Auto) (20.0-40.0) % Leon % (Auto) (3.0-10.0) % Eos % (Auto) (1.0-5.0) % Baso % (Auto) (0.0-0.5) % Neut # (Auto) (2.00-7.50) K/uL Lymph # (Auto) (1.50-4.00) K/uL Leon # (Auto) (0.20-0.80) K/uL Eos # (Auto) (0.04-0.40) K/uL Baso # (Auto) (0.02-0.10) K/uL D-Dimer, Quantitative (0-400) ng/mL Sodium (136-145) mmol/L Potassium (3.5-5.1) mmol/L Chloride (98-107) mmol/L Carbon Dioxide (21.0-32.0) mmol/L Anion Gap (5.0-15.0) mmol/L BUN (8-26) mg/dL Creatinine (0.70-1.30) mg/dL Est Cr Clr Drug Dosing mL/min Estimated GFR (MDRD) (>60) MLS/MIN BUN/Creatinine Ratio (6-25) Glucose (74-100) mg/dL Lactic Acid 1.1 (0.4-2.0) mmol/L Calcium (8.5-10.1) mg/dL Magnesium (1.8-2.4) mg/dL Total Bilirubin (0.0-1.0) mg/dL AST (15-37) U/L ALT (12-78) U/L Alkaline Phosphatase (46-116) U/L Troponin I (0.000-0.060) ng/mL C-Reactive Protein (0.0-3.0) mg/L B-Natriuretic Peptide (0-125) pg/mL Total Protein (6.4-8.2) g/dL Albumin (3.4-5.0) g/dL Globulin (2.2-4.2) g/dL Albumin/Globulin Ratio (0.8-2.0) Meds: Medications Generic Name Dose Route Start Last Admin Trade Name Freq PRN Reason Stop Dose Admin Acetaminophen 650 mg 12/26/19 14:54 Tylenol PO Q4H PRN analgesia/fever Albuterol/Ipratropium 3 ml 12/26/19 16:00 12/26/19 16:40 Duoneb 3.0-0.5 Mg/3 Ml NEB 3 ml Q6H GABRIELA Administration Enoxaparin Sodium 40 mg 12/26/19 15:15 12/26/19 18:14 Lovenox SUBCUT 40 mg DAILY GABRIELA Administration Azithromycin 500 mg/ Sodium 250 mls @ 250 mls/hr 12/27/19 08:00 Chloride IV Q24H GABRIELA Piperacillin Sod/Tazobactam 100 mls @ 100 mls/hr 12/27/19 02:00 Sod 3.375 gm/ Sodium Chloride IV Q6H GABRIELA Lisinopril 2.5 mg 12/26/19 15:15 12/26/19 17:59 Prinivil PO 2.5 mg DAILY GABRIELA Administration Magnesium Hydroxide 30 ml 12/26/19 14:54 Milk Of Magnesia PO BID PRN Constipation Nicotine 21 mg 12/26/19 14:54 Habitrol TRDERM DAILY PRN Withdrawal Symptoms Nicotine Polacrilex 2 - 4 mg 12/26/19 14:54 Commit BUCCAL Q2H PRN Withdrawal Symptoms Nicotine Polacrilex 4 mg 12/26/19 14:54 Nicorelief CHEW Q2H PRN smoking cessation Ondansetron HCl 4 mg 12/26/19 15:01 Zofran IVPUSH Q6H PRN Nausea/Vomiting Discontinued Medications Generic Name Dose Route Start Last Admin Trade Name Freq PRN Reason Stop Dose Admin Albuterol/Ipratropium 3 ml 12/26/19 09:57 12/26/19 10:38 Duoneb 3.0-0.5 Mg/3 Ml NEB 12/26/19 09:58 3 ml ONETIME ONE Administration Azithromycin 500 mg/ Sodium 250 mls @ 250 mls/hr 12/26/19 09:58 12/26/19 10: 41 Chloride IV 12/26/19 10:57 250 mls/hr ONETIME ONE Administration Magnesium Sulfate 2 gm/ Premix 50 mls @ 25 mls/hr 12/26/19 15:05 12/26/19 18: 00 IV 12/26/19 17:04 25 mls/hr ONETIME ONE Administration Piperacillin Sod/Tazobactam 100 mls @ 100 mls/hr 12/26/19 22:00 Sod 3.375 gm/ Sodium Chloride IV Q6H GABRIELA Magnesium Sulfate/Dextrose Confirm 12/26/19 17:45 12/26/19 18:00 Magnesium Sulfate In D5w 100 Premix Administered 12/26/19 17:46 Not Given Dose 2 gm in 200 mls @ as directed .ROUTE .STK-MED ONE Piperacillin Sod/Tazobactam 100 mls @ 200 mls/hr 12/26/19 20:00 Sod 4.5 gm/ Sodium Chloride IV 12/26/19 20:29 ONETIME ONE Departure - Departure Time of Disposition: 11:30 Disposition: Admitted As Inpatient 66 Clinical Impression: Hypoxia - Discharge Information Sepsis Event Note - Focused Exam Vital Signs: Vital Signs Temp Pulse Resp BP Pulse Ox 12/26/19 10:57 70 18 95 12/26/19 10:47 96 12/26/19 10:20 93 L 12/26/19 10:00 98.0 F 75 18 128/72 92 L 12/26/19 09:35 73 85 L Date Exam was Performed: 12/26/19 Time Exam was Performed: 20:42 - My Orders Last 24 Hours: My Active Orders 12/26/19 09:56 EKG 12 Lead [EK] Stat 12/26/19 09:57 Cardiac Monitoring [RC] .As Directed EKG Documentation Completion [RC] ASDIRECTED RT Aerosol Therapy [RC] ASDIRECTED 12/26/19 09:58 CULTURE SPUTUM + SMEAR [RM] Stat 12/26/19 09:59 Isolation [COMM] Routine 12/26/19 12:12 CORONAVIRUS COVID-19 PCR PHL Routine - Assessment/Plan Last 24 Hours: My Active Orders 12/26/19 09:56 EKG 12 Lead [EK] Stat 12/26/19 09:57 Cardiac Monitoring [RC] .As Directed EKG Documentation Completion [RC] ASDIRECTED RT Aerosol Therapy [RC] ASDIRECTED 12/26/19 09:58 CULTURE SPUTUM + SMEAR [RM] Stat 12/26/19 09:59 Isolation [COMM] Routine 12/26/19 12:12 CORONAVIRUS COVID-19 PCR PHL Routine
--- NOTE | 2019-12-26 13:47 | CR ---
DATE OF SERVICE: 12/26/19 CLINICAL DATA: Hypoxia. AP CHEST: Comparison is made to a prior exam dated 11/21/19. The heart remains enlarged, unchanged. There is calcification of the aortic arch. The pulmonary vasculature does appear prominent, suggesting pulmonary venous congestion. There is identified edema throughout both lungs. Congestive failure should be considered. There are patchy infiltrates in both lungs that have improved from the prior study. There are densities in both lung bases on today's exam, consistent with basilar atelectasis or infiltrate. Pneumonia should be considered. There is blunting of both costophrenic angles consistent with bilateral pleural effusions. The exam is otherwise unchanged from the prior. [id number] [facility]
[2019-12-26] MEDS ORDERED: Magnesium Hydroxide 400 MG/5 ML Susp 30 ML Cup PO PRN (14:54)
[2019-12-26] MEDS ORDERED: Nicotine Polacrilex 2 MG Loz BUCCAL PRN (14:54)
[2019-12-26] MEDS ORDERED: Acetaminophen 325 MG Tab PO PRN (14:54)
[2019-12-26] MEDS ORDERED: Nicotine 21 MG/24 Hr Patch TRDERM PRN (14:54)
[2019-12-26] MEDS ORDERED: Nicotine Polacrilex 4 MG Gum CHEW PRN (14:54)
[2019-12-26] MEDS ORDERED: Ondansetron 4 MG/2 ML SDV IVPUSH PRN (15:01)
[2019-12-26] MEDS ORDERED: Magnesium Sulfate/Water 2 GM in Premix Bag 1 BAG IV ONE (15:05)
[2019-12-26] MEDS ORDERED: Piperacillin/Tazobactam 4.5 GM in Sodium Chloride 0.9% 100 ML IV ONE ×2 (15:12→20:00)
[2019-12-26] MEDS: Albuterol/Ipratropium 3.0-0.5 MG/3 ML Neb Soln NEB SCH ×2 (16:40→22:08)
[2019-12-26] MEDS ORDERED: Magnesium Sulfate/D5W 2 GM/200 ML BAG ONE (17:45)
[2019-12-26] MEDS: Lisinopril 2.5 MG Tab PO SCH (17:59)
[2019-12-26] MEDS: Enoxaparin 40 MG/0.4 ML Syringe SUBCUT SCH (18:14)
--- NOTE | 2019-12-26 20:49 | PCM.HP.2 ---
H&P History of Present Illness - General Date of Service: 12/26/19 Admit Problem/Dx: Admission Diagnosis/Problem Admission Diagnosis/Problem Hypoxia Source of Information: Patient History Limitations: Reports: No Limitations - History of Present Illness Initial Comments - Free Text/Narative: Please see detailed ER documentation and this will suffice as my admission H&P - Related Data Allergies/Adverse Reactions: Allergies Allergy/AdvReac Type Severity Reaction Status Date / Time Milk Containing Products Allergy Airway Verified 11/22/19 08:17 Tightness povidone-iodine Allergy Hives Verified 11/22/19 01:11 [From Betadine] soap [From Betadine] Allergy Hives Verified 11/22/19 01:11 Home Medications: Home Meds Lisinopril 10 mg PO DAILY 01/27/16 [History] Cholecalciferol (Vitamin D3) [Vitamin D3] 1 tab PO DAILY 11/22/19 [History] Gabapentin Enacarbil [Horizant] 600 mg PO BEDTIME 11/22/19 [History] Levothyroxine 25 mcg PO ACBREAKFAST 11/22/19 [History] Levothyroxine 200 mcg PO ACBREAKFAST 11/22/19 [History] Mirtazapine 15 mg PO BEDTIME 11/22/19 [History] Sertraline [Zoloft] 1 tab PO DAILY 11/22/19 [History] Past Medical History HEENT History: Reports: Impaired Vision Cardiovascular History: Reports: Hypertension Respiratory History: Reports: Other (See Below) Musculoskeletal History: Reports: Fracture, Other (See Below) Other Musculoskeletal History: Hip Fx Neurological History: Reports: None. Denies: Seizure Psychiatric History: Reports: Depression Endocrine/Metabolic History: Reports: Multinodular Thyroid - Infectious Disease History Infectious Disease History: Reports: Chicken Pox - Past Surgical History HEENT Surgical History: Reports: Other (See Below) Musculoskeletal Surgical History: Reports: Other (See Below) Social & Family History - Family History Family Medical History: Noncontributory - Tobacco Use Smoking Status *Q: Current Every Day Smoker Years of Tobacco use: 30 Packs/Tins Daily: 0.1 - Caffeine Use Caffeine Use: Reports: Coffee - Recreational Drug Use Recreational Drug Use: No H&P Review of Systems - Review of Systems: Review Of Systems: See Below Free Text/Narrative: See review of systems on ER note Exam - Exam Exam: See Below - Vital Signs Vital Signs: Last Vital Signs Temp 98.0 F 12/26/19 18:13 Pulse 78 12/26/19 18:13 Resp 18 12/26/19 18:13 BP 118/52 L 12/26/19 18:13 Pulse Ox 91 L 12/26/19 18:13 Weight: 228 lb 12.8 oz - Patient Data Lab Results Last 24 hrs: Laboratory Results - last 24 hr 12/26/19 12/26/19 12/26/19 Range/Units 10:15 10:15 10:15 WBC 6.5 D (4.0-11.0) K/uL RBC 4.29 L (4.50-6.50) M/uL Hgb 13.3 (13.0-18.0) g/dL Hct 38.6 L (40.0-54.0) % MCV 90 (76-96) fL MCH 31.0 (27.0-32.0) pg MCHC 34.5 (31.0-35.0) g/dL RDW 14.7 (11.0-16.0) % Plt Count 211 (150-400) K/uL MPV 9.8 (6.0-10.0) fL Neut % (Auto) 61.3 (45.0-70.0) % Lymph % (Auto) 23.1 (20.0-40.0) % [place] % (Auto) 10.6 H (3.0-10.0) % Eos % (Auto) 3.5 (1.0-5.0) % Baso % (Auto) 1.5 H (0.0-0.5) % Neut # (Auto) 3.97 (2.00-7.50) K/uL Lymph # (Auto) 1.50 (1.50-4.00) K/uL [place] # (Auto) 0.69 (0.20-0.80) K/uL Eos # (Auto) 0.23 (0.04-0.40) K/uL Baso # (Auto) 0.10 (0.02-0.10) K/uL D-Dimer, Quantitative (0-400) ng/mL Sodium 141 (136-145) mmol/L Potassium 4.4 (3.5-5.1) mmol/L Chloride 106 (98-107) mmol/L Carbon Dioxide 24.1 (21.0-32.0) mmol/L Anion Gap 15.3 H (5.0-15.0) mmol/L BUN 8 (8-26) mg/dL Creatinine 0.87 D (0.70-1.30) mg/dL Est Cr Clr Drug Dosing 99.73 mL/min Estimated GFR (MDRD) > 60 (>60) MLS/MIN BUN/Creatinine Ratio 9.2 (6-25) Glucose 108 H (74-100) mg/dL Lactic Acid (0.4-2.0) mmol/L Calcium 8.2 L (8.5-10.1) mg/dL Magnesium (1.8-2.4) mg/dL Total Bilirubin 0.5 (0.0-1.0) mg/dL AST 32 (15-37) U/L ALT 36 (12-78) U/L Alkaline Phosphatase 78 (46-116) U/L Troponin I 0.030 D (0.000-0.060) ng/mL C-Reactive Protein (0.0-3.0) mg/L B-Natriuretic Peptide 88867 H (0-125) pg/mL Total Protein 6.3 L (6.4-8.2) g/dL Albumin 3.5 (3.4-5.0) g/dL Globulin 2.8 (2.2-4.2) g/dL Albumin/Globulin Ratio 1.2 (0.8-2.0) Urine Color Urine Appearance (CLEAR) Urine pH (5.0-8.0) Ur Specific [place] (1.003-1.030) Urine Protein (NEGATIVE) mg/dL Urine Glucose (UA) (NEGATIVE) mg/dL Urine Ketones (NEGATIVE) mg/dL Urine Occult Blood (NEGATIVE) Urine Nitrite (NEGATIVE) Urine Bilirubin (NEGATIVE) Urine Urobilinogen (0.2-1.0) E.U./dL Ur Leukocyte Esterase (NEGATIVE) 12/26/19 12/26/19 12/26/19 Range/Units 10:15 10:15 10:15 WBC (4.0-11.0) K/uL RBC (4.50-6.50) M/uL Hgb (13.0-18.0) g/dL Hct (40.0-54.0) % MCV (76-96) fL MCH (27.0-32.0) pg MCHC (31.0-35.0) g/dL RDW (11.0-16.0) % Plt Count (150-400) K/uL MPV (6.0-10.0) fL Neut % (Auto) (45.0-70.0) % Lymph % (Auto) (20.0-40.0) % [place] % (Auto) (3.0-10.0) % Eos % (Auto) (1.0-5.0) % Baso % (Auto) (0.0-0.5) % Neut # (Auto) (2.00-7.50) K/uL Lymph # (Auto) (1.50-4.00) K/uL [place] # (Auto) (0.20-0.80) K/uL Eos # (Auto) (0.04-0.40) K/uL Baso # (Auto) (0.02-0.10) K/uL D-Dimer, Quantitative 1430 H (0-400) ng/mL Sodium (136-145) mmol/L Potassium (3.5-5.1) mmol/L Chloride (98-107) mmol/L Carbon Dioxide (21.0-32.0) mmol/L Anion Gap (5.0-15.0) mmol/L BUN (8-26) mg/dL Creatinine (0.70-1.30) mg/dL Est Cr Clr Drug Dosing mL/min Estimated GFR (MDRD) (>60) MLS/MIN BUN/Creatinine Ratio (6-25) Glucose (74-100) mg/dL Lactic Acid (0.4-2.0) mmol/L Calcium (8.5-10.1) mg/dL Magnesium 1.7 L (1.8-2.4) mg/dL Total Bilirubin (0.0-1.0) mg/dL AST (15-37) U/L ALT (12-78) U/L Alkaline Phosphatase (46-116) U/L Troponin I (0.000-0.060) ng/mL C-Reactive Protein 8.3 H (0.0-3.0) mg/L B-Natriuretic Peptide (0-125) pg/mL Total Protein (6.4-8.2) g/dL Albumin (3.4-5.0) g/dL Globulin (2.2-4.2) g/dL Albumin/Globulin Ratio (0.8-2.0) Urine Color Urine Appearance (CLEAR) Urine pH (5.0-8.0) Ur Specific [place] (1.003-1.030) Urine Protein (NEGATIVE) mg/dL Urine Glucose (UA) (NEGATIVE) mg/dL Urine Ketones (NEGATIVE) mg/dL Urine Occult Blood (NEGATIVE) Urine Nitrite (NEGATIVE) Urine Bilirubin (NEGATIVE) Urine Urobilinogen (0.2-1.0) E.U./dL Ur Leukocyte Esterase (NEGATIVE) 12/26/19 12/26/19 Range/Units 10:45 16:00 WBC (4.0-11.0) K/uL RBC (4.50-6.50) M/uL Hgb (13.0-18.0) g/dL Hct (40.0-54.0) % MCV (76-96) fL MCH (27.0-32.0) pg MCHC (31.0-35.0) g/dL RDW (11.0-16.0) % Plt Count (150-400) K/uL MPV (6.0-10.0) fL Neut % (Auto) (45.0-70.0) % Lymph % (Auto) (20.0-40.0) % [place] % (Auto) (3.0-10.0) % Eos % (Auto) (1.0-5.0) % Baso % (Auto) (0.0-0.5) % Neut # (Auto) (2.00-7.50) K/uL Lymph # (Auto) (1.50-4.00) K/uL [place] # (Auto) (0.20-0.80) K/uL Eos # (Auto) (0.04-0.40) K/uL Baso # (Auto) (0.02-0.10) K/uL D-Dimer, Quantitative (0-400) ng/mL Sodium (136-145) mmol/L Potassium (3.5-5.1) mmol/L Chloride (98-107) mmol/L Carbon Dioxide (21.0-32.0) mmol/L Anion Gap (5.0-15.0) mmol/L BUN (8-26) mg/dL Creatinine (0.70-1.30) mg/dL Est Cr Clr Drug Dosing mL/min Estimated GFR (MDRD) (>60) MLS/MIN BUN/Creatinine Ratio (6-25) Glucose (74-100) mg/dL Lactic Acid 1.1 (0.4-2.0) mmol/L Calcium (8.5-10.1) mg/dL Magnesium (1.8-2.4) mg/dL Total Bilirubin (0.0-1.0) mg/dL AST (15-37) U/L ALT (12-78) U/L Alkaline Phosphatase (46-116) U/L Troponin I (0.000-0.060) ng/mL C-Reactive Protein (0.0-3.0) mg/L B-Natriuretic Peptide (0-125) pg/mL Total Protein (6.4-8.2) g/dL Albumin (3.4-5.0) g/dL Globulin (2.2-4.2) g/dL Albumin/Globulin Ratio (0.8-2.0) Urine Color Yellow Urine Appearance Clear (CLEAR) Urine pH 5.5 (5.0-8.0) Ur Specific [place] > 1.030 (1.003-1.030) Urine Protein Negative (NEGATIVE) mg/dL Urine Glucose (UA) Negative (NEGATIVE) mg/dL Urine Ketones Negative (NEGATIVE) mg/dL Urine Occult Blood Negative (NEGATIVE) Urine Nitrite Negative (NEGATIVE) Urine Bilirubin Negative (NEGATIVE) Urine Urobilinogen 0.2 (0.2-1.0) E.U./dL Ur Leukocyte Esterase Negative (NEGATIVE) Result Diagrams: 12/26/19 10:15 12/26/19 10:15 Baron Results Last 24 hrs: Microbiology 12/26/19 09:59 Influenza Type A Antigen Screen - Final Nasal, Unspecified NEGATIVE INFLUENZA A VIRUS AG REFERENCE RANGE: NEGATIVE Influenza Type B Antigen Screen - Final NEGATIVE INFLUENZA B VIRUS AG REFERENCE RANGE: NEGATIVE Sepsis Event Note - Evaluation Sepsis Screening Result: No Definite Risk - Focused Exam Vital Signs: Vital Signs Temp Pulse Resp BP BP Pulse Ox 12/26/19 18:13 98.0 F 78 18 118/52 L 91 L 12/26/19 17:59 118/72 12/26/19 15:35 97.7 F 73 90 L 12/26/19 14:54 93 L 12/26/19 14:13 97.7 F 73 20 118/68 94 L 12/26/19 10:57 70 18 95 12/26/19 10:47 96 12/26/19 10:20 93 L 12/26/19 10:00 98.0 F 75 18 128/72 92 L 12/26/19 09:35 73 85 L Date Exam was Performed: 12/26/19 Time Exam was Performed: 20:53 Problem List Initiated/Reviewed/Updated: Yes Orders Last 24hrs: Active Orders 24 hr Category Date Time Status Patient Status [ADT] Routine ADT 12/26/19 14:13 Active Cardiac Monitoring [RC] .As Directed Care 12/26/19 09:57 Active EKG Documentation Completion [RC] ASDIRECTED Care 12/26/19 09:57 Active Incentive Spirometry [RT Incentive Spirometry] [RC] Care 12/26/19 15:14 Active Q2HWA Notify Provider Vital Signs [RC] ASDIRECTED Care 12/26/19 14:32 Active Orthostatic Vital Signs [RC] ASDIRECTED Care 12/26/19 14:35 Active Oxygen Therapy [RC] PRN Care 12/26/19 14:13 Active Pulse Oximetry [RC] CONTINUOUS Care 12/26/19 14:54 Active RT Aerosol Therapy [RC] ASDIRECTED Care 12/26/19 09:57 Active RT Aerosol Therapy [RC] ASDIRECTED Care 12/26/19 15:14 Active Vital Signs [RC] Q4H Care 12/26/19 14:13 Active Vital Signs [RC] Q4H Care 12/26/19 14:35 Active Regular Diet [DIET] Diet 12/26/19 Lunch Ordered Chest 2V [CR] Stat Exams 12/27/19 08:00 Ordered BASIC METABOLIC PANEL,BMP [CHEM] Stat Lab 12/27/19 07:00 Ordered CORONAVIRUS COVID-19 PCR PHL Routine Lab 12/26/19 12:12 Received CRP [C-REACTIVE PROTEIN] [CHEM] Stat Lab 12/27/19 07:00 Ordered CULTURE MRSA SURVEY [RM] Stat Lab 12/26/19 Received CULTURE SPUTUM + SMEAR [RM] Stat Lab 12/26/19 09:58 Ordered L. PNEUMOPHILA SEROGP 1 UR AG Stat Lab 12/26/19 16:00 Received MAGNESIUM [CHEM] Stat Lab 12/27/19 07:00 Ordered PROCALCITONIN Stat Lab 12/26/19 11:30 Received STREPTOCOCCUS PNEUMONIAE AG Stat Lab 12/26/19 16:00 Received TROPONIN I [CHEM] Routine Lab 12/27/19 07:00 Ordered Acetaminophen [Tylenol] Med 12/26/19 14:54 Active 650 mg PO Q4H PRN Albuterol/Ipratropium [DuoNeb 3.0-0.5 MG/3 ML] Med 12/26/19 16:00 Active 3 ml NEB Q6H Azithromycin [Zithromax] 500 mg Med 12/27/19 08:00 Active Sodium Chloride 0.9% [Normal Saline] 250 ml IV Q24H Enoxaparin [Lovenox] Med 12/26/19 15:15 Active 40 mg SUBCUT DAILY Magnesium Hydroxide [Milk of Magnesia] Med 12/26/19 14:54 Active 30 ml PO BID PRN Nicotine Polacrilex [Commit] Med 12/26/19 14:54 Active 2 - 4 mg BUCCAL Q2H PRN Nicotine Polacrilex [Nicorelief] Med 12/26/19 14:54 Active 4 mg CHEW Q2H PRN Nicotine [Habitrol] Med 12/26/19 14:54 Active 21 mg TRDERM DAILY PRN Ondansetron [Zofran] Med 12/26/19 15:01 Active 4 mg IVPUSH Q6H PRN Piperacillin/Tazobactam [Zosyn] 3.375 gm Med 12/27/19 02:00 Active Sodium Chloride 0.9% [Normal Saline] 100 ml IV Q6H lisinopriL [Prinivil] Med 12/26/19 15:15 Active 2.5 mg PO DAILY Isolation [COMM] Routine Oth 12/26/19 09:59 Active Resuscitation Status Routine Resus Stat 12/26/19 18:28 Ordered EKG 12 Lead [EK] Stat Ther 12/26/19 09:56 Ordered Medication Orders Acetaminophen (Tylenol) 650 mg PO Q4H PRN PRN Reason: analgesia/fever Albuterol/Ipratropium (Duoneb 3.0-0.5 Mg/3 Ml) 3 ml NEB Q6H [facility] Last Admin: 12/26/19 16:40 Dose: 3 ml Enoxaparin Sodium (Lovenox) 40 mg SUBCUT DAILY [facility] Last Admin: 12/26/19 18:14 Dose: 40 mg Azithromycin 500 mg/ Sodium (Chloride) 250 mls @ 250 mls/hr IV Q24H [facility] Piperacillin Sod/Tazobactam (Sod 3.375 gm/ Sodium Chloride) 100 mls @ 100 mls/ hr IV Q6H [facility] Lisinopril (Prinivil) 2.5 mg PO DAILY [facility] Last Admin: 12/26/19 17:59 Dose: 2.5 mg Magnesium Hydroxide (Milk Of Magnesia) 30 ml PO BID PRN PRN Reason: Constipation Nicotine (Habitrol) 21 mg TRDERM DAILY PRN PRN Reason: Withdrawal Symptoms Nicotine Polacrilex (Commit) 2 - 4 mg BUCCAL Q2H PRN PRN Reason: Withdrawal Symptoms Nicotine Polacrilex (Nicorelief) 4 mg CHEW Q2H PRN PRN Reason: smoking cessation Ondansetron HCl (Zofran) 4 mg IVPUSH Q6H PRN PRN Reason: Nausea/Vomiting
[2019-12-26] MEDS ORDERED: Piperacillin/Tazobactam 3.375 GM in Sodium Chloride 0.9% 100 ML IV SCH (22:00)
[2019-12-27] MEDS: Piperacillin/Tazobactam 3.375 GM in Sodium Chloride 0.9% 100 ML IV SCH ×4 (02:30→21:10)
[2019-12-27] MEDS ORDERED: Zolpidem 5 MG Tab ONE (03:20)
[2019-12-27] MEDS: Albuterol/Ipratropium 3.0-0.5 MG/3 ML Neb Soln NEB SCH ×4 (07:06→21:30)
[2019-12-27] MEDS: Zolpidem 5 MG Tab PO SCH ×2 (07:08→20:40)
[2019-12-27] MEDS: Azithromycin 500 MG in Sodium Chloride 0.9% 250 ML IV SCH (08:08)
[2019-12-27] MEDS: Lisinopril 2.5 MG Tab PO SCH ×2 (08:14→20:40)
[2019-12-27] MEDS: Enoxaparin 40 MG/0.4 ML Syringe SUBCUT SCH (08:21)
[2019-12-27] MEDS ORDERED: MAGNESIUM SULFATE IV ONE (11:33)
[2019-12-27] MEDS ORDERED: WATER IV ONE (11:33)
--- NOTE | 2019-12-27 11:50 | PCM.PN ---
- General Info Date of Service: 12/27/19 Subjective Update: Elías feels great and, outside of one brief episode of awakening breathless. He doesn't argue with the idea of orthopnea. Cannot tolerate his CPAP, although machine is from 2006. They moved. His may find this at home. She is stressed over his new dx of CHF. She wishes that she could visit. His daughter called and wants any necessary tests done, and explains she fears Elías may decline certain studies due to his concern over cost, as well as being stoic. No perceived side effects. He declines orthostasis. Minimal cough. No sputum. No edema. Denies any known ischemic cardiac events. - Review of Systems Pulmonary: Reports: Shortness of Breath - Patient Data Vitals - Most Recent: Last Vital Signs Temp 97.3 F 12/27/19 10:29 Pulse 86 12/27/19 10:29 Resp 18 12/27/19 10:29 BP 110/68 12/27/19 10:29 Pulse Ox 94 L 12/27/19 10:29 Weight - Most Recent: 228 lb 12.8 oz I&O - Last 24 Hours: Intake & Output 12/26/19 12/27/19 12/27/19 22:59 06:59 14:59 Intake Total 800 Output Total 400 300 Balance -400 500 Lab Results Last 24 Hours: Laboratory Results - last 24 hr 12/26/19 12/26/19 12/27/19 Range/Units 10:45 16:00 09:15 Sodium (136-145) mmol/L Potassium (3.5-5.1) mmol/L Chloride (98-107) mmol/L Carbon Dioxide (21.0-32.0) mmol/L Anion Gap (5.0-15.0) mmol/L BUN (8-26) mg/dL Creatinine (0.70-1.30) mg/dL Est Cr Clr Drug Dosing mL/min Estimated GFR (MDRD) (>60) MLS/MIN BUN/Creatinine Ratio (6-25) Glucose (74-100) mg/dL Lactic Acid 1.1 (0.4-2.0) mmol/L Calcium (8.5-10.1) mg/dL Magnesium (1.8-2.4) mg/dL Troponin I 0.025 (0.000-0.060) ng/mL C-Reactive Protein (0.0-3.0) mg/L Urine Color Yellow Urine Appearance Clear (CLEAR) Urine pH 5.5 (5.0-8.0) Ur Specific [place] > 1.030 (1.003-1.030) Urine Protein Negative (NEGATIVE) mg/dL Urine Glucose (UA) Negative (NEGATIVE) mg/dL Urine Ketones Negative (NEGATIVE) mg/dL Urine Occult Blood Negative (NEGATIVE) Urine Nitrite Negative (NEGATIVE) Urine Bilirubin Negative (NEGATIVE) Urine Urobilinogen 0.2 (0.2-1.0) E.U./dL Ur Leukocyte Esterase Negative (NEGATIVE) 12/27/19 Range/Units 09:15 Sodium 141 (136-145) mmol/L Potassium 4.0 (3.5-5.1) mmol/L Chloride 106 (98-107) mmol/L Carbon Dioxide 22.5 (21.0-32.0) mmol/L Anion Gap 16.5 H (5.0-15.0) mmol/L BUN 9 (8-26) mg/dL Creatinine 1.00 (0.70-1.30) mg/dL Est Cr Clr Drug Dosing 86.77 mL/min Estimated GFR (MDRD) > 60 (>60) MLS/MIN BUN/Creatinine Ratio 9.0 (6-25) Glucose 135 H (74-100) mg/dL Lactic Acid (0.4-2.0) mmol/L Calcium 7.5 L (8.5-10.1) mg/dL Magnesium 1.7 L (1.8-2.4) mg/dL Troponin I (0.000-0.060) ng/mL C-Reactive Protein 6.1 H (0.0-3.0) mg/L Urine Color Urine Appearance (CLEAR) Urine pH (5.0-8.0) Ur Specific [place] (1.003-1.030) Urine Protein (NEGATIVE) mg/dL Urine Glucose (UA) (NEGATIVE) mg/dL Urine Ketones (NEGATIVE) mg/dL Urine Occult Blood (NEGATIVE) Urine Nitrite (NEGATIVE) Urine Bilirubin (NEGATIVE) Urine Urobilinogen (0.2-1.0) E.U./dL Ur Leukocyte Esterase (NEGATIVE) Baron Results Last 24 Hours: Microbiology 12/26/19 Unknown MRSA Surveillance Culture - Final Nares, Unspecified NO MRSA ISOLATED 12/26/19 09:59 Influenza Type A Antigen Screen - Final Nasal, Unspecified NEGATIVE INFLUENZA A VIRUS AG REFERENCE RANGE: NEGATIVE Influenza Type B Antigen Screen - Final NEGATIVE INFLUENZA B VIRUS AG REFERENCE RANGE: NEGATIVE Med Orders - Current: Current Medications Acetaminophen (Tylenol) 650 mg PO Q4H PRN PRN Reason: analgesia/fever Albuterol/Ipratropium (Duoneb 3.0-0.5 Mg/3 Ml) 3 ml NEB Q6H [facility] Last Admin: 12/27/19 08:48 Dose: 3 ml Enoxaparin Sodium (Lovenox) 40 mg SUBCUT DAILY [facility] Last Admin: 12/27/19 08:21 Dose: 40 mg Azithromycin 500 mg/ Sodium (Chloride) 250 mls @ 250 mls/hr IV Q24H [facility] Last Admin: 12/27/19 08:08 Dose: 250 mls/hr Piperacillin Sod/Tazobactam (Sod 3.375 gm/ Sodium Chloride) 100 mls @ 100 mls/ hr IV Q6H [facility] Last Admin: 12/27/19 08:13 Dose: 100 mls/hr Magnesium Sulfate 4 gm/ Premix 50 mls @ 12.5 mls/hr IV ONETIME ONE Stop: 12/27/19 15:32 Lisinopril (Prinivil) 2.5 mg PO DAILY [facility] Last Admin: 12/27/19 08:14 Dose: 2.5 mg Magnesium Hydroxide (Milk Of Magnesia) 30 ml PO BID PRN PRN Reason: Constipation Nicotine (Habitrol) 21 mg TRDERM DAILY PRN PRN Reason: Withdrawal Symptoms Nicotine Polacrilex (Commit) 2 - 4 mg BUCCAL Q2H PRN PRN Reason: Withdrawal Symptoms Nicotine Polacrilex (Nicorelief) 4 mg CHEW Q2H PRN PRN Reason: smoking cessation Ondansetron HCl (Zofran) 4 mg IVPUSH Q6H PRN PRN Reason: Nausea/Vomiting Zolpidem Tartrate (Ambien) 10 mg PO BEDTIME [facility] Last Admin: 12/27/19 07:08 Dose: Not Given Discontinued Medications Albuterol/Ipratropium (Duoneb 3.0-0.5 Mg/3 Ml) 3 ml NEB ONETIME ONE Stop: 12/26/19 09:58 Last Admin: 12/26/19 10:38 Dose: 3 ml Azithromycin 500 mg/ Sodium (Chloride) 250 mls @ 250 mls/hr IV ONETIME ONE Stop: 12/26/19 10:57 Last Admin: 12/26/19 10:41 Dose: 250 mls/hr Magnesium Sulfate 2 gm/ Premix 50 mls @ 25 mls/hr IV ONETIME ONE Stop: 12/26/19 17:04 Last Admin: 12/26/19 18:00 Dose: 25 mls/hr Piperacillin Sod/Tazobactam (Sod 3.375 gm/ Sodium Chloride) 100 mls @ 100 mls/ hr IV Q6H [facility] Magnesium Sulfate/Dextrose (Magnesium Sulfate In D5w 100 Premix) Confirm Administered Dose 2 gm in 200 mls @ as directed .ROUTE .STK-MED ONE Stop: 12/26/19 17:46 Last Admin: 12/26/19 18:00 Dose: Not Given Piperacillin Sod/Tazobactam (Sod 4.5 gm/ Sodium Chloride) 100 mls @ 200 mls/hr IV ONETIME ONE Stop: 12/26/19 20:29 Last Admin: 12/26/19 20:00 Dose: 200 mls/hr Zolpidem Tartrate (Ambien) Confirm Administered Dose 10 mg .ROUTE .STK-MED ONE Stop: 12/27/19 03:21 Last Admin: 12/27/19 03:25 Dose: 10 mg Sepsis Event Note - Evaluation Sepsis Screening Result: No Definite Risk - Focused Exam Vital Signs: Vital Signs Temp Pulse Resp BP BP Pulse Ox 12/27/19 10:29 97.3 F 86 18 110/68 94 L 12/27/19 08:38 98.8 F 87 138/72 20 L 12/27/19 08:14 138/72 12/27/19 06:00 97 F 73 12/27/19 02:00 97 F 66 18 112/84 90 L Date Exam was Performed: 12/31/19 Time Exam was Performed: 16:19 - Problem List Review Problem List Initiated/Reviewed/Updated: Yes - My Orders Last 24 Hours: My Active Orders 12/26/19 11:30 PROCALCITONIN Stat 12/26/19 12:12 CORONAVIRUS COVID-19 PCR PHL Routine 12/26/19 14:13 Patient Status [ADT] Routine Oxygen Therapy [RC] PRN Vital Signs [RC] Q4H 04/30/20 14:32 Notify Provider Vital Signs [RC] ASDIRECTED 12/26/19 14:35 Orthostatic Vital Signs [RC] ASDIRECTED Vital Signs [RC] Q4H 12/26/19 14:54 Pulse Oximetry [RC] CONTINUOUS Acetaminophen [Tylenol] 650 mg PO Q4H PRN Magnesium Hydroxide [Milk of Magnesia] 30 ml PO BID PRN Nicotine Polacrilex [Commit] 2 - 4 mg BUCCAL Q2H PRN Nicotine Polacrilex [Nicorelief] 4 mg CHEW Q2H PRN Nicotine [Habitrol] 21 mg TRDERM DAILY PRN 12/26/19 15:01 Ondansetron [Zofran] 4 mg IVPUSH Q6H PRN 12/26/19 15:14 Incentive Spirometry [RT Incentive Spirometry] [RC] Q2HWA RT Aerosol Therapy [RC] ASDIRECTED 12/26/19 15:15 Enoxaparin [Lovenox] 40 mg SUBCUT DAILY lisinopriL [Prinivil] 2.5 mg PO DAILY 12/26/19 16:00 L. PNEUMOPHILA SEROGP 1 UR AG Stat STREPTOCOCCUS PNEUMONIAE AG Stat Albuterol/Ipratropium [DuoNeb 3.0-0.5 MG/3 ML] 3 ml NEB Q6H 12/26/19 18:28 Resuscitation Status Routine 12/26/19 Lunch Regular Diet [DIET] 12/27/19 02:00 Piperacillin/Tazobactam [Zosyn] 3.375 gm Sodium Chloride 0.9% [Normal Saline] 100 ml IV Q6H 12/27/19 03:12 Zolpidem [Ambien] 10 mg PO BEDTIME 12/27/19 08:00 Chest 2V [CR] Stat Azithromycin [Zithromax] 500 mg Sodium Chloride 0.9% [Normal Saline] 250 ml IV Q24H 12/27/19 09:20 Chest 1V Frontal [CR] Routine 12/27/19 09:38 CULTURE SPUTUM + SMEAR [RM] Stat 12/27/19 11:33 Magnesium Sulfate/Water [Magnesium Sulfate in Water Premix] 4 gm Premix Bag 50 bag IV ONETIME 12/27/19 11:35 EKG Documentation Completion [RC] ASDIRECTED EKG 12 Lead [EK] Stat - Plan Plan:: Certainly seems c/w covid 19, until proven otherwise. CHF likely more Right- sided, and certainly has pulmonary htn and would benefit from immediate institution of CPAP. This certainly could prevent further potential of adverse events requiring ICU stay, angiography, cardiac MRI, multi-specialty consultation, and he will likely tolerate if sedated appropriately, and provided with nasal pillows (given his amazing tolerance to nasal cannula, and ability to maintain sats appropriately. Appreciate Delores Perez, who graciously resumes care, and is very familiar with Elías's complex case. Of note , this encounter serves as a face to face visit, for any and all medical supplies and/or home O2 if needed. At some point, may benefit from addition of selective beta blockade, and this may be initiated if clinical course improves as anticipated tomorrow, such as toprol XL Metoprolol succinate) 12.5 mg (OK to split 25 mg tablet). At this point, it may make sense to stop his beta agonist. Continued telemetry would be helpful, in order to exclude symptomatic bradycardia.
--- NOTE | 2019-12-27 12:06 | CR ---
DATE OF SERVICE: 12/27/19 CLINICAL DATA: Pneumonia. AP CHEST: Comparison made to a prior exam dated 12/26/19. The heart remains enlarged, unchanged. There is persistent pulmonary vascular congestion. It does not appear significantly changed. There are progressive, interstitial infiltrates/interstitial edema throughout both lungs. There is progressive atelectasis and consolidation of both lower lungs. There are bilateral pleural effusions that have increased from the prior study. No other interval changes. [id number] [facility]
[2019-12-27] MEDS ORDERED: Magnesium Sulfate/D5W 1 GM/100 ML BAG ONE (13:06)
[2019-12-27] MEDS ORDERED: LORazepam 2 MG/ML SDV IVPUSH PRN (14:36)
[2019-12-27] MEDS ORDERED: Furosemide 20 MG/2 ML VIAL IVPUSH SCH (15:00)
--- NOTE | 2019-12-27 15:12 | CT ---
DATE OF SERVICE: 12/27/2019 CLINICAL DATA: R/O PE and Covid [address]: Multislice axial acquisition was performed without and with IV contrast. No priors. No evidence of PE. No pneumothorax. The ascending aorta is dilated and measures 5.4 cm in diameter. No evidence of dissection. There are moderately large bilateral pleural effusions. There are emphysematous changed throughout both lungs with fibrotic and cystic changes bilaterally. There are atelectatic changes in the dependent portion of both lungs. There is atelectasis and consolidation of both lower lobes. Pneumonia should be considered. The heart is mildly enlarged. There is a small pericardial effusion. There are calcifications in the region of the aortic valve. The pulmonary vasculature does appear prominent suggesting pulmonary venous congestion. Mild congestive failure should be considered. No other significant findings. MTDD
[2019-12-27] MEDS: Magnesium Sulfate/D5W 1 GM/100 ML BAG IV SCH ×3 (15:33→17:39)
[2019-12-27] MEDS ORDERED: traZODone 50 MG Tab PO SCH (20:00)
[2019-12-28] MEDS: Piperacillin/Tazobactam 3.375 GM in Sodium Chloride 0.9% 100 ML IV SCH ×2 (02:57→08:11)
[2019-12-28] MEDS ORDERED: Furosemide 20 MG/2 ML VIAL IVPUSH SCH (06:00)
[2019-12-28] MEDS: Albuterol/Ipratropium 3.0-0.5 MG/3 ML Neb Soln NEB SCH ×2 (06:08→10:05)
[2019-12-28] MEDS: Azithromycin 500 MG in Sodium Chloride 0.9% 250 ML IV SCH (08:10)
[2019-12-28] MEDS: Enoxaparin 40 MG/0.4 ML Syringe SUBCUT SCH (08:12)
[2019-12-28] MEDS: Lisinopril 2.5 MG Tab PO SCH (08:13)
[2019-12-28 10:09] VITALS: BP 132/70; PULSE 83
[2019-12-28] MEDS ORDERED: Furosemide 40 MG/4 ML VIAL IVPUSH ONE (11:01)
--- NOTE | 2019-12-28 11:22 | PCM.PN ---
- General Info Date of Service: 12/28/19 Admission Dx/Problem (Free Text): Admission Diagnosis/Problem Admission Diagnosis/Problem Hypoxia Subjective Update: Patient reports feeling very fatigued, short of breath. Denies any particular pain, nausea, or vomiting. Denies diarrhea. Functional Status: Reports: Pain Controlled - Review of Systems General: Reports: Fatigue. Denies: Fever HEENT: Denies: No Symptoms Pulmonary: Reports: Shortness of Breath, Cough Cardiovascular: Reports: Dyspnea on Exertion, Orthopnea. Denies: Chest Pain, Palpitations Gastrointestinal: Reports: Decreased Appetite. Denies: Abdominal Pain, Diarrhea , Difficulty Swallowing, Nausea, Vomiting Genitourinary: Denies: Dysuria Musculoskeletal: Reports: No Symptoms Skin: Reports: No Symptoms Neurological: Reports: No Symptoms - Patient Data Vitals - Most Recent: Last Vital Signs Temp 36.5 C 12/28/19 10:07 Pulse 83 12/28/19 10:07 Resp 18 12/28/19 10:07 BP 132/70 12/28/19 10:07 Pulse Ox 95 12/28/19 10:07 Weight - Most Recent: 102.421 kg I&O - Last 24 Hours: Intake & Output 12/27/19 12/28/19 12/28/19 22:59 06:59 14:59 Intake Total 1350 300 Output Total 1000 600 Balance 350 -300 Lab Results Last 24 Hours: Laboratory Results - last 24 hr 12/26/19 12/28/19 12/28/19 Range/Units 12:12 08:40 08:40 WBC 10.0 D (4.0-11.0) K/uL RBC 4.21 L (4.50-6.50) M/uL Hgb 13.0 (13.0-18.0) g/dL Hct 38.6 L (40.0-54.0) % MCV 92 (76-96) fL MCH 30.9 (27.0-32.0) pg MCHC 33.7 (31.0-35.0) g/dL RDW 14.7 (11.0-16.0) % Plt Count 194 (150-400) K/uL MPV 10.2 H (6.0-10.0) fL Neut % (Auto) 76.9 H (45.0-70.0) % Lymph % (Auto) 11.9 L (20.0-40.0) % [place] % (Auto) 9.2 (3.0-10.0) % Eos % (Auto) 1.3 (1.0-5.0) % Baso % (Auto) 0.7 H (0.0-0.5) % Neut # (Auto) 7.68 H (2.00-7.50) K/uL Lymph # (Auto) 1.19 L (1.50-4.00) K/uL [place] # (Auto) 0.92 H (0.20-0.80) K/uL Eos # (Auto) 0.13 (0.04-0.40) K/uL Baso # (Auto) 0.07 (0.02-0.10) K/uL Sodium 140 (136-145) mmol/L Potassium 4.0 (3.5-5.1) mmol/L Chloride 105 (98-107) mmol/L Carbon Dioxide 24.7 (21.0-32.0) mmol/L Anion Gap 14.3 (5.0-15.0) mmol/L BUN 8 (8-26) mg/dL Creatinine 0.83 (0.70-1.30) mg/dL Est Cr Clr Drug Dosing 104.54 mL/min Estimated GFR (MDRD) > 60 (>60) MLS/MIN BUN/Creatinine Ratio 9.6 (6-25) Glucose 103 H (74-100) mg/dL Calcium 7.5 L (8.5-10.1) mg/dL Magnesium 2.0 (1.8-2.4) mg/dL Total Bilirubin 0.7 D (0.0-1.0) mg/dL AST 23 (15-37) U/L ALT 34 (12-78) U/L Alkaline Phosphatase 67 (46-116) U/L Troponin I 0.032 D (0.000-0.060) ng/mL C-Reactive Protein 11.0 H (0.0-3.0) mg/L B-Natriuretic Peptide 52654 H D (0-125) pg/mL Total Protein 6.2 L (6.4-8.2) g/dL Albumin 3.4 (3.4-5.0) g/dL Globulin 2.8 (2.2-4.2) g/dL Albumin/Globulin Ratio 1.2 (0.8-2.0) COVID-19 PCR Negative (NEGATIVE) [facility] Results Last 24 Hours: Microbiology 12/26/19 Unknown MRSA Surveillance Culture - Final Nares, Unspecified NO MRSA ISOLATED Med Orders - Current: Current Medications Acetaminophen (Tylenol) 650 mg PO Q4H PRN PRN Reason: analgesia/fever Albuterol/Ipratropium (Duoneb 3.0-0.5 Mg/3 Ml) 3 ml NEB Q6H [facility] Last Admin: 12/28/19 10:05 Dose: 3 ml Enoxaparin Sodium (Lovenox) 40 mg SUBCUT DAILY [facility] Last Admin: 12/28/19 08:12 Dose: 40 mg Furosemide (Lasix) 10 mg IVPUSH Q12H [facility] Last Admin: 12/28/19 06:23 Dose: 10 mg Azithromycin 500 mg/ Sodium (Chloride) 250 mls @ 250 mls/hr IV Q24H [facility] Last Admin: 12/28/19 08:10 Dose: 250 mls/hr Piperacillin Sod/Tazobactam (Sod 3.375 gm/ Sodium Chloride) 100 mls @ 100 mls/ hr IV Q6H [facility] Last Admin: 12/28/19 08:11 Dose: 100 mls/hr Magnesium Sulfate/Dextrose (Magnesium Sulfate In D5w 100 Premix) 1 gm in 100 mls @ 100 mls/hr IV Q1H [facility] Last Admin: 12/27/19 17:39 Dose: 100 mls/hr Lisinopril (Prinivil) 2.5 mg PO Q12H [facility] Last Admin: 12/28/19 08:13 Dose: 2.5 mg Lorazepam (Ativan) 0.5 - 1 mg IVPUSH Q2H PRN PRN Reason: Anxiety Magnesium Hydroxide (Milk Of Magnesia) 30 ml PO BID PRN PRN Reason: Constipation Nicotine (Habitrol) 21 mg TRDERM DAILY PRN PRN Reason: Withdrawal Symptoms Nicotine Polacrilex (Commit) 2 - 4 mg BUCCAL Q2H PRN PRN Reason: Withdrawal Symptoms Nicotine Polacrilex (Nicorelief) 4 mg CHEW Q2H PRN PRN Reason: smoking cessation Ondansetron HCl (Zofran) 4 mg IVPUSH Q6H PRN PRN Reason: Nausea/Vomiting Trazodone HCl (Trazodone) 50 mg PO BEDTIME [facility] Last Admin: 12/27/19 20:32 Dose: 50 mg Zolpidem Tartrate (Ambien) 10 mg PO BEDTIME [facility] Last Admin: 12/27/19 20:40 Dose: 10 mg Discontinued Medications Albuterol/Ipratropium (Duoneb 3.0-0.5 Mg/3 Ml) 3 ml NEB ONETIME ONE Stop: 12/26/19 09:58 Last Admin: 12/26/19 10:38 Dose: 3 ml Furosemide (Lasix) 10 mg IVPUSH Q12H [facility] Last Admin: 12/27/19 16:29 Dose: 10 mg Furosemide (Lasix) 40 mg IVPUSH NOW ONE Stop: 12/28/19 11:02 Last Admin: 12/28/19 11:14 Dose: 40 mg Azithromycin 500 mg/ Sodium (Chloride) 250 mls @ 250 mls/hr IV ONETIME ONE Stop: 12/26/19 10:57 Last Admin: 12/26/19 10:41 Dose: 250 mls/hr Magnesium Sulfate 2 gm/ Premix 50 mls @ 25 mls/hr IV ONETIME ONE Stop: 12/26/19 17:04 Last Admin: 12/26/19 18:00 Dose: 25 mls/hr Piperacillin Sod/Tazobactam (Sod 3.375 gm/ Sodium Chloride) 100 mls @ 100 mls/ hr IV Q6H [facility] Magnesium Sulfate/Dextrose (Magnesium Sulfate In D5w 100 Premix) Confirm Administered Dose 2 gm in 200 mls @ as directed .ROUTE .STK-MED ONE Stop: 12/26/19 17:46 Last Admin: 12/26/19 18:00 Dose: Not Given Piperacillin Sod/Tazobactam (Sod 4.5 gm/ Sodium Chloride) 100 mls @ 200 mls/hr IV ONETIME ONE Stop: 12/26/19 20:29 Last Admin: 12/26/19 20:00 Dose: 200 mls/hr Magnesium Sulfate 4 gm/ Premix 50 mls @ 12.5 mls/hr IV ONETIME ONE Stop: 12/27/19 15:32 Last Admin: 12/27/19 18:54 Dose: Not Given Magnesium Sulfate/Dextrose (Magnesium Sulfate In D5w 100 Premix) Confirm Administered Dose 1 gm in 100 mls @ as directed .ROUTE .STK-MED ONE Stop: 12/27/19 13:07 Last Admin: 12/27/19 14:06 Dose: 100 mls/hr Lisinopril (Prinivil) 2.5 mg PO DAILY [facility] Last Admin: 12/27/19 08:14 Dose: 2.5 mg Zolpidem Tartrate (Ambien) Confirm Administered Dose 10 mg .ROUTE .STK-MED ONE Stop: 12/27/19 03:21 Last Admin: 12/27/19 03:25 Dose: 10 mg - Exam Quality Assessment: Supplemental Oxygen General: Alert, Oriented, Cooperative, Mild Distress HEENT: Pupils Equal, Pupils Reactive, EOMI, Mucous Membr. Moist/[place] Neck: Supple Lungs: Decreased Breath Sounds, Crackles Cardiovascular: Regular Rate, Regular Rhythm GI/Abdominal Exam: Normal Bowel Sounds, No Distention Extremities: Normal Inspection, Non-Tender, No Pedal Edema, Normal Capillary Refill Skin: Warm, Dry, Intact Neurological: No New Focal Deficit Psy/Mental Status: Alert, Normal Affect Sepsis Event Note - Evaluation Sepsis Screening Result: No Definite Risk - Focused Exam Vital Signs: Vital Signs Temp Pulse Resp BP BP Pulse Ox 12/28/19 10:07 36.5 C 83 18 132/70 95 12/28/19 08:13 136/70 12/28/19 06:00 36.4 C 92 18 118/74 12/28/19 02:00 36.3 C 79 16 114/74 99 Date Exam was Performed: 12/28/19 Time Exam was Performed: 11:29 - Problem List Review Problem List Initiated/Reviewed/Updated: Yes - Assessment Assessment:: Diagnoses: 1) Heart failure, advancing 2) Pneumonia 3) Hypoxia Plan: This patient continues to require 4-6 L oxygen to maintain saturations >90% at rest. He develops shortness of breath with tachypnea with any exertion including speaking. BNP today suggests advanced cardiac failure and breath sounds and oxygen requirement remain unchanged. He was given an additional 40 mg of Lasix this morning. I spoke with Dr. Verdugo, Hospital Medicine at regarding this patient and his need for an Echocardiogram and Cardiology evaluation. He did agree to accept this patient in transfer. Arrangements were made for his transfer to via ground ambulance. The patient was stable at the time of of transfer. - Plan Plan:: Certainly seems c/w covid 19, until proven otherwise. CHF likely more Right- sided, and certainly has pulmonary htn and would benefit from immediate institution of CPAP. This certainly could prevent further potential of adverse events requiring ICU stay, angiography, cardiac MRI, multi-specialty consultation, and he will likely tolerate if sedated appropriately, and provided with nasal pillows (given his amazing tolerance to nasal cannula, and ability to maintain sats appropriately. Appreciate Delores Perez, who graciously resumes care, and is very familiar with Elías's complex case. Of note , this encounter serves as a face to face visit, for any and all medical supplies and/or home O2 if needed. At some point, may benefit from addition of selective beta blockade, and this may be initiated if clinical course improves as anticipated tomorrow, such as toprol XL Metoprolol succinate) 12.5 mg (OK to split 25 mg tablet). At this point, it may make sense to stop his beta agonist. Continued telemetry would be helpful, in order to exclude symptomatic bradycardia.
--- NOTE | 2019-12-28 11:29 | PCM.DCSUM1 ---
Discharge Summary - Hospital Course HPI Initial Comments: This patient continues to require 4-6 L oxygen to maintain saturations >90% at rest. He develops shortness of breath with tachypnea with any exertion including speaking. BNP today suggests advanced cardiac failure and breath sounds and oxygen requirement remain unchanged. He was given an additional 40 mg of Lasix this morning. I spoke with Dr. Verdugo, Hospital Medicine at [facility] regarding this patient and his need for an Echocardiogram and Cardiology evaluation. He did agree to accept this patient in transfer. Arrangements were made for his transfer to [facility] via ground ambulance. The patient was stable at the time of of transfer. Brief History: Admitted to hospital on 11/22/2019 for pneumonia, suspected COVID -19. His COVID swab was negative and he was difficult to wean from O2 to room air. Diagnosis: Stroke: No Modified Perez Scale: No Symptoms at All Modified Miller Scale Score: 0 - Discharge Data Discharge Date: 12/28/19 Discharge Disposition: DC/Tfer to Acute Hospital 02 Condition: Fair - Referral to Home Health Primary Care Physician: PCP None - Discharge Diagnosis/Problem(s) (1) Pneumonia SNOMED Code(s): 865353989 ICD Code: J18.9 - PNEUMONIA, UNSPECIFIED ORGANISM Status: Acute Priority : High Current Visit: No Qualifiers: Pneumonia type: due to unspecified organism Laterality: bilateral Lung location: unspecified part of lung Qualified Code(s): J18.9 - Pneumonia, unspecified organism (2) Heart failure SNOMED Code(s): 13022779 ICD Code: I50.9 - HEART FAILURE, UNSPECIFIED Status: Acute Priority: High Current Visit: Yes Qualifiers: Heart failure type: unspecified (3) Heart failure SNOMED Code(s): 46734426 ICD Code: I50.9 - HEART FAILURE, UNSPECIFIED Status: Acute Current Visit : Yes Qualifiers: Heart failure chronicity: acute - Discharge Plan *PRESCRIPTION DRUG MONITORING PROGRAM REVIEWED*: Not Applicable Home Medications: Home Meds Lisinopril 10 mg PO DAILY 01/27/16 [History] Cholecalciferol (Vitamin D3) [Vitamin D3] 1 tab PO DAILY 11/22/19 [History] Gabapentin Enacarbil [Horizant] 600 mg PO BEDTIME 11/22/19 [History] Levothyroxine 25 mcg PO ACBREAKFAST 11/22/19 [History] Levothyroxine 200 mcg PO ACBREAKFAST 11/22/19 [History] Mirtazapine 15 mg PO BEDTIME 11/22/19 [History] Sertraline [Zoloft] 1 tab PO DAILY 11/22/19 [History] Oxygen Flow Rate (L/min): 5 Maintain SPO2% less than: 92 Patient Handouts: Hypoxia Referrals: PCP,None [Primary Care Provider] - - Discharge Summary/Plan Comment DC Time >30 min.: Yes - Patient Data Vitals - Most Recent: Last Vital Signs Temp 36.5 C 12/28/19 10:07 Pulse 83 12/28/19 10:07 Resp 18 12/28/19 10:07 BP 132/70 12/28/19 10:07 Pulse Ox 95 12/28/19 10:07 Weight - Most Recent: 102.421 kg I&O - Last 24 hours: Intake & Output 12/27/19 12/28/19 12/28/19 22:59 06:59 14:59 Intake Total 1350 300 Output Total 1000 600 Balance 350 -300 Lab Results - Last 24 hrs: Laboratory Results - last 24 hr 12/26/19 12/28/19 12/28/19 Range/Units 12:12 08:40 08:40 WBC 10.0 D (4.0-11.0) K/uL RBC 4.21 L (4.50-6.50) M/uL Hgb 13.0 (13.0-18.0) g/dL Hct 38.6 L (40.0-54.0) % MCV 92 (76-96) fL MCH 30.9 (27.0-32.0) pg MCHC 33.7 (31.0-35.0) g/dL RDW 14.7 (11.0-16.0) % Plt Count 194 (150-400) K/uL MPV 10.2 H (6.0-10.0) fL Neut % (Auto) 76.9 H (45.0-70.0) % Lymph % (Auto) 11.9 L (20.0-40.0) % [place] % (Auto) 9.2 (3.0-10.0) % Eos % (Auto) 1.3 (1.0-5.0) % Baso % (Auto) 0.7 H (0.0-0.5) % Neut # (Auto) 7.68 H (2.00-7.50) K/uL Lymph # (Auto) 1.19 L (1.50-4.00) K/uL [place] # (Auto) 0.92 H (0.20-0.80) K/uL Eos # (Auto) 0.13 (0.04-0.40) K/uL Baso # (Auto) 0.07 (0.02-0.10) K/uL Sodium 140 (136-145) mmol/L Potassium 4.0 (3.5-5.1) mmol/L Chloride 105 (98-107) mmol/L Carbon Dioxide 24.7 (21.0-32.0) mmol/L Anion Gap 14.3 (5.0-15.0) mmol/L BUN 8 (8-26) mg/dL Creatinine 0.83 (0.70-1.30) mg/dL Est Cr Clr Drug Dosing 104.54 mL/min Estimated GFR (MDRD) > 60 (>60) MLS/MIN BUN/Creatinine Ratio 9.6 (6-25) Glucose 103 H (74-100) mg/dL Calcium 7.5 L (8.5-10.1) mg/dL Magnesium 2.0 (1.8-2.4) mg/dL Total Bilirubin 0.7 D (0.0-1.0) mg/dL AST 23 (15-37) U/L ALT 34 (12-78) U/L Alkaline Phosphatase 67 (46-116) U/L Troponin I 0.032 D (0.000-0.060) ng/mL C-Reactive Protein 11.0 H (0.0-3.0) mg/L B-Natriuretic Peptide 42013 H D (0-125) pg/mL Total Protein 6.2 L (6.4-8.2) g/dL Albumin 3.4 (3.4-5.0) g/dL Globulin 2.8 (2.2-4.2) g/dL Albumin/Globulin Ratio 1.2 (0.8-2.0) COVID-19 PCR Negative (NEGATIVE) [facility] Results - Last 24 hrs: Microbiology 12/26/19 Unknown MRSA Surveillance Culture - Final Nares, Unspecified NO MRSA ISOLATED Med Orders - Current: Current Medications Acetaminophen (Tylenol) 650 mg PO Q4H PRN PRN Reason: analgesia/fever Albuterol/Ipratropium (Duoneb 3.0-0.5 Mg/3 Ml) 3 ml NEB Q6H [facility] Last Admin: 12/28/19 10:05 Dose: 3 ml Enoxaparin Sodium (Lovenox) 40 mg SUBCUT DAILY [facility] Last Admin: 12/28/19 08:12 Dose: 40 mg Furosemide (Lasix) 10 mg IVPUSH Q12H [facility] Last Admin: 12/28/19 06:23 Dose: 10 mg Azithromycin 500 mg/ Sodium (Chloride) 250 mls @ 250 mls/hr IV Q24H [facility] Last Admin: 12/28/19 08:10 Dose: 250 mls/hr Piperacillin Sod/Tazobactam (Sod 3.375 gm/ Sodium Chloride) 100 mls @ 100 mls/ hr IV Q6H [facility] Last Admin: 12/28/19 08:11 Dose: 100 mls/hr Magnesium Sulfate/Dextrose (Magnesium Sulfate In D5w 100 Premix) 1 gm in 100 mls @ 100 mls/hr IV Q1H [facility] Last Admin: 12/27/19 17:39 Dose: 100 mls/hr Lisinopril (Prinivil) 2.5 mg PO Q12H [facility] Last Admin: 12/28/19 08:13 Dose: 2.5 mg Lorazepam (Ativan) 0.5 - 1 mg IVPUSH Q2H PRN PRN Reason: Anxiety Magnesium Hydroxide (Milk Of Magnesia) 30 ml PO BID PRN PRN Reason: Constipation Nicotine (Habitrol) 21 mg TRDERM DAILY PRN PRN Reason: Withdrawal Symptoms Nicotine Polacrilex (Commit) 2 - 4 mg BUCCAL Q2H PRN PRN Reason: Withdrawal Symptoms Nicotine Polacrilex (Nicorelief) 4 mg CHEW Q2H PRN PRN Reason: smoking cessation Ondansetron HCl (Zofran) 4 mg IVPUSH Q6H PRN PRN Reason: Nausea/Vomiting Trazodone HCl (Trazodone) 50 mg PO BEDTIME [facility] Last Admin: 12/27/19 20:32 Dose: 50 mg Zolpidem Tartrate (Ambien) 10 mg PO BEDTIME [facility] Last Admin: 12/27/19 20:40 Dose: 10 mg Discontinued Medications Albuterol/Ipratropium (Duoneb 3.0-0.5 Mg/3 Ml) 3 ml NEB ONETIME ONE Stop: 12/26/19 09:58 Last Admin: 12/26/19 10:38 Dose: 3 ml Furosemide (Lasix) 10 mg IVPUSH Q12H [facility] Last Admin: 12/27/19 16:29 Dose: 10 mg Furosemide (Lasix) 40 mg IVPUSH NOW ONE Stop: 12/28/19 11:02 Last Admin: 12/28/19 11:14 Dose: 40 mg Azithromycin 500 mg/ Sodium (Chloride) 250 mls @ 250 mls/hr IV ONETIME ONE Stop: 12/26/19 10:57 Last Admin: 12/26/19 10:41 Dose: 250 mls/hr Magnesium Sulfate 2 gm/ Premix 50 mls @ 25 mls/hr IV ONETIME ONE Stop: 12/26/19 17:04 Last Admin: 12/26/19 18:00 Dose: 25 mls/hr Piperacillin Sod/Tazobactam (Sod 3.375 gm/ Sodium Chloride) 100 mls @ 100 mls/ hr IV Q6H [facility] Magnesium Sulfate/Dextrose (Magnesium Sulfate In D5w 100 Premix) Confirm Administered Dose 2 gm in 200 mls @ as directed .ROUTE .STK-MED ONE Stop: 12/26/19 17:46 Last Admin: 12/26/19 18:00 Dose: Not Given Piperacillin Sod/Tazobactam (Sod 4.5 gm/ Sodium Chloride) 100 mls @ 200 mls/hr IV ONETIME ONE Stop: 12/26/19 20:29 Last Admin: 12/26/19 20:00 Dose: 200 mls/hr Magnesium Sulfate 4 gm/ Premix 50 mls @ 12.5 mls/hr IV ONETIME ONE Stop: 12/27/19 15:32 Last Admin: 12/27/19 18:54 Dose: Not Given Magnesium Sulfate/Dextrose (Magnesium Sulfate In D5w 100 Premix) Confirm Administered Dose 1 gm in 100 mls @ as directed .ROUTE .STK-MED ONE Stop: 12/27/19 13:07 Last Admin: 12/27/19 14:06 Dose: 100 mls/hr Lisinopril (Prinivil) 2.5 mg PO DAILY [facility] Last Admin: 12/27/19 08:14 Dose: 2.5 mg Zolpidem Tartrate (Ambien) Confirm Administered Dose 10 mg .ROUTE .[facility] ONE Stop: 12/27/19 03:21 Last Admin: 12/27/19 03:25 Dose: 10 mg
[2019-12-31 11:11] LABS: ORGANISM ID Not indicated. (.); SPECIMEN SOURCE Urine (.); STREPTOCOCCUS PNEUMONIAE AG Negative (Negative)
== END 2019-12-28 11:29 | DRG 291 ==
LOC: LB.ED 09:08 → LB.MS 14:13
PROVIDERS: ADMIT Family Medicine; ATTEND Family Medicine
PROC: 8E0ZXY6 Isolation (ICD-10-PCS; principal; 2019-12-26)
DX: I11.0 Hypertensive heart disease with heart failure (principal); J18.9 Pneumonia, unspecified organism; I50.9 Heart failure, unspecified; H54.7 Unspecified visual loss; F32.9 Major depressive disorder, single episode, unspecified; F17.210 Nicotine dependence, cigarettes, uncomplicated; Z20.828 Contact with and (suspected) exposure to other viral communicable diseases; I27.20 Pulmonary hypertension, unspecified; Z79.890 Hormone replacement therapy; Z79.899 Other long term (current) drug therapy; Z91.09 Other allergy status, other than to drugs and biological substances; Z91.011 Allergy to milk products
CPT/HCPCS: 36415; 71045; 71270; 80048; 80053; 81003; 83605; 83735; 83880; 84145; 84484; 85025; 85379; 86140; 87449; 87804; 87804-59; 87899; 93005; 96365; 99222; 99232; 99239; 99285-25; A0425; A0429; A9270-GY; J0456; J1650; J1940; J2543; J3475; J7050; J7620-GY; U0002

== ENCOUNTER 2020-03-05 10:44 | Emergency (ER) | payer MEDICAID ==
--- NOTE | 2020-03-05 11:30 | EDM.PDOC ---
ED HPI GENERAL MEDICAL PROBLEM - General Chief Complaint: Back Pain or Injury Stated Complaint: PREVIOUS HEART SURGERY, ROUGH NIGHT Time Seen by Provider: 03/05/20 11:10 Source of Information: Reports: Patient History Limitations: Reports: No Limitations - History of Present Illness INITIAL COMMENTS - FREE TEXT/NARRATIVE: pt presents to the ER accompanied by his who also provides history of pt with increased neck pain, upper back pain during the night. pt states near fall where his and home nurse caught him before he hit the ground, pt states this was a non-syncopal fall but is concerned for muscle strain or loosened sternotomy wires. coinciding symptoms of intermittent shortness of breath with activity, fever with chills. symptoms improve with rest, worsen with activity, no change when laying down, pt states he does not feel it is required for comfort to sleep in a recliner or remain upright, no PND. pt denies nausea, vomiting, chest pain, abdominal pain, dysuria, hematuria. medical history significant for CHF,COPD. surgical history of open heart aortic root valve replacement in [place] about 3 weeks ago. - Related Data Allergies Allergy/AdvReac Type Severity Reaction Status Date / Time Milk Containing Products Allergy Airway Verified 03/05/20 12:18 Tightness povidone-iodine Allergy Hives Verified 03/05/20 12:18 [From Betadine] soap [From Betadine] Allergy Hives Verified 03/05/20 12:18 Home Meds: Home Meds Lisinopril 10 mg PO DAILY 01/27/16 [History] Cholecalciferol (Vitamin D3) [Vitamin D3] 1 tab PO DAILY 11/22/19 [History] Gabapentin Enacarbil [Horizant] 600 mg PO BEDTIME 11/22/19 [History] Levothyroxine 25 mcg PO ACBREAKFAST 11/22/19 [History] Levothyroxine 200 mcg PO ACBREAKFAST 11/22/19 [History] Mirtazapine 15 mg PO BEDTIME 11/22/19 [History] Sertraline [Zoloft] 1 tab PO DAILY 11/22/19 [History] Acetaminophen/traMADol [Ultracet] 1 tab PO Q6H PRN 03/05/20 [History] Albuterol/Ipratropium [DuoNeb 3.0-0.5 MG/3 ML] 3 ml .XX Q6HR 03/05/20 [History] Amiodarone [Cordarone] 200 mg PO DAILY 03/05/20 [History] Amoxicillin/Clavulanate K [Augmentin 875-125 MG] 1 tab PO BID #14 tablet 03/05/20 [Rx] Aspirin [Halfprin] 81 mg PO DAILY 03/05/20 [History] Azithromycin 250 mg PO QAM #6 tablet 03/05/20 [Rx] Budesonide/Formoterol Fumarate [Budesonide-Formoterol 160-4.5] 10.2 gm IH BID 03/05/20 [History] Bumetanide [Bumex] 1 mg PO DAILY 03/05/20 [History] Docusate Sodium 250 mg PO DAILY 03/05/20 [History] Melatonin 3 mg PO BEDTIME 03/05/20 [History] Omeprazole 20 mg PO DAILY 03/05/20 [History] Potassium Chloride 8 meq PO DAILY 03/05/20 [History] Warfarin Dosing [Coumadin Ask] 1 each PO ONETIME 03/05/20 [History] Past Medical History HEENT History: Reports: Impaired Vision Cardiovascular History: Reports: Hypertension Respiratory History: Reports: Other (See Below) Musculoskeletal History: Reports: Fracture, Other (See Below) Other Musculoskeletal History: Hip Fx Neurological History: Reports: None. Denies: Seizure Psychiatric History: Reports: Depression Endocrine/Metabolic History: Reports: Multinodular Thyroid - Infectious Disease History Infectious Disease History: Reports: Chicken Pox - Past Surgical History HEENT Surgical History: Reports: Other (See Below) Musculoskeletal Surgical History: Reports: Other (See Below) Social & Family History - Family History Family Medical History: Noncontributory - Caffeine Use Caffeine Use: Reports: Coffee ED ROS GENERAL - Review of Systems Review Of Systems: Comprehensive ROS is negative, except as noted in HPI. ED EXAM, GENERAL - Physical Exam Exam: See Below Exam Limited By: No Limitations General Appearance: Alert, WD/WN, No Apparent Distress Eye Exam: Bilateral Eye: EOMI, PERRL Throat/Mouth: Normal Inspection, Normal Voice, No Airway Compromise Head: Atraumatic, Normocephalic Neck: Normal Inspection, Full Range of Motion Respiratory/Chest: No Respiratory Distress, Lungs Clear, No Accessory Muscle Use Cardiovascular: Normal Peripheral Pulses, Regular Rate, Rhythm Back Exam: Normal Inspection Extremities: Normal Range of Motion, Non-Tender Neurological: Alert, Oriented, CN II-XII Intact, Normal Cognition, Normal Gait Psychiatric: Normal Affect, Normal Mood Skin Exam: Warm, Dry, Intact Course - Radiology Interpretation Free Text/Narrative:: cxr shows bilateral blunting of apices, no change from previous exam. new sternum wires and pleural line when compared to previous exam. LLL consolodation noted. Departure - Departure Time of Disposition: 12:30 Disposition: Home, Self-Care 01 Condition: Fair Clinical Impression: CAP (community acquired pneumonia) - Discharge Information *PRESCRIPTION DRUG MONITORING PROGRAM REVIEWED*: Not Applicable *COPY OF PRESCRIPTION DRUG MONITORING REPORT IN PATIENT DONNA: Not Applicable Prescriptions: Amoxicillin/Clavulanate K [Augmentin 875-125 MG] 1 tab PO BID #14 tablet Azithromycin 250 mg PO QAM #6 tablet Referrals: PCP,None [Primary Care Provider] - Forms: ED Department Discharge Additional Instructions: incentive spirometer at least every hour (more is preferable) cough and deep breathing exercises are good too take antibiotics this afternoon/evening as prescribed: Augmentin (7 days) and Azithromycin (5 days) if symptoms worsen (shortness of breath/labored breathing, chest pain, increasing fatigue) come back to the ER for a recheck. - Problem List & Annotations (1) Pneumonia SNOMED Code(s): 378656555 Code(s): J18.9 - PNEUMONIA, UNSPECIFIED ORGANISM Status: Acute Priority: High Current Visit: No Qualifiers: Pneumonia type: due to unspecified organism Laterality: left Lung location: lower lobe of lung Qualified Code(s): J18.9 - Pneumonia, unspecified organism - Problem List Review Problem List Initiated/Reviewed/Updated: Yes - Assessment/Plan Assessment:: assessment: LLL Community Acquired Pneumonia plan: Augmentin and azithromycin incentive spirometry other differentials considered were CHF exacerbation with BNP elevated but current symptoms don't favor this, although it is likely contributing factor. COPD exacerbation, pneumothorax, atelactasis also considered. this pt was evaluated and treated in the context of the covid 19 pandemic.
[2020-03-05 12:17] VITALS: PULSE 111
[2020-03-05] MEDS ORDERED: cefTRIAXone 1 GM Vial IVPUSH STA (12:30)
[2020-03-05 13:07] VITALS: BP 124/80
--- NOTE | 2020-03-06 10:14 | CR ---
DATE OF SERVICE: 03/05/20 CLINICAL DATA: SOB. AP CHEST: Comparison is made to a prior exam dated January 2020. The patient was status post median sternotomy in the interval. The heart is enlarged. There is pulmonary vascular congestion. There is atelectasis and consolidation in the left lower lung. There is a moderately large left pleural effusion. There is increased density in the right lung base consistent with basilar atelectasis or infiltrate. There is blunting of the right costophrenic angle consistent with small right pleural effusion. The exam is otherwise unchanged from the prior. [id number] [facility]
== END 2020-03-05 13:20 | disposition home or self-care (01) ==
LOC: LB.ED 10:44
DX: J18.9 Pneumonia, unspecified organism (principal); I10 Essential (primary) hypertension; F32.9 Major depressive disorder, single episode, unspecified; Z91.011 Allergy to milk products; Z91.048 Other nonmedicinal substance allergy status; Z79.899 Other long term (current) drug therapy
CPT/HCPCS: 36415; 71045; 80053; 83880; 85025; 96374; 99283-25; J0696

== ENCOUNTER 2024-03-22 13:48 | Emergency (ER) | payer MEDICARE ==
[2024-03-22] MEDS: Tetracaine HCl/PF 0.5% 4 ML Bottle EYELF ONE (14:15)
[2024-03-22] MEDS: Fluorescein 1 MG Ophth Strip EYELF ONE (14:17)
[2024-03-22 14:21] VITALS: BP 145/91; PULSE 74
== END 2024-03-22 14:30 | disposition home or self-care (01) ==
LOC: LB.ED 13:48
DX: S05.02XA Injury of conjunctiva and corneal abrasion without foreign body, left eye, initial encounter (principal); Z79.899 Other long term (current) drug therapy; Z91.011 Allergy to milk products; Z91.048 Other nonmedicinal substance allergy status; X58.XXXA Exposure to other specified factors, initial encounter
CPT/HCPCS: 99283

== ENCOUNTER 2024-08-09 15:13 | Emergency (ER) | payer MEDICARE ==
[2024-08-09 16:18] LABS: BASOPHILS ABSOLUTE AUTO 0.08 K/uL (0.02-0.10); BASOPHILS PERCENT AUTO 1.2 % (0.0-0.5); EOSINOPHILS PERCENT AUTO 1.5 % (1.0-5.0); HEMATOCRIT 34.7 % (40.0-54.0); HEMOGLOBIN 10.9 g/dL (13.0-18.0); LYMPHOCYTES ABSOLUTE AUTO 0.89 K/uL (1.50-4.00); MEAN CORPUSCULAR HEMOGLOBIN 27.7 pg (27.0-32.0); MEAN CORPUSCULAR HGB CONC 31.4 g/dL (31.0-35.0); MEAN CORPUSCULAR VOLUME 88 fL (76-96); MEAN PLATELET VOLUME 9.7 fL (6.0-10.0); MONOCYTES ABSOLUTE AUTO 0.89 K/uL (0.20-0.80); NEUTROPHILS ABSOLUTE AUTO 4.89 K/uL (2.00-7.50); NEUTROPHILS PERCENT AUTO 71.3 % (45.0-70.0); PLATELET COUNT,PLT 201 K/uL (150-400); RED BLOOD CELL COUNT 3.93 M/uL (4.50-6.50); RED CELL DISTRIBUTION WIDTH 15.7 % (11.0-16.0); WHITE BLOOD CELL COUNT,WBC 6.9 K/uL (4.0-11.0)
[2024-08-09 16:32] LABS: INR 3.5 (1.0-3.5)
[2024-08-09 16:36] LABS: ANION GAP 11.3 mmol/L (5.0-15.0); BUN/CREATININE RATIO 15.7 (6-25); CALCIUM 8.2 mg/dL (8.5-10.1); CARBON DIOXIDE,CO2 29.2 mmol/L (21.0-32.0); CREATININE 1.08 mg/dL (0.70-1.30); EST CRCL DRUG DOSING (CG) 76.11 mL/min; POTASSIUM,K 4.5 mmol/L (3.5-5.1); PROTEIN TOTAL,TP 5.9 g/dL (6.4-8.2)
[2024-08-09 18:41] VITALS: PULSE 128
[2024-08-09 18:42] LABS: APPEARANCE,URINE TURBID (CLEAR); COLOR,URINE YELLOW; GLUCOSE,URINE NEGATIVE (NEGATIVE); KETONES,URINE TRACE mg/dL (NEGATIVE); PH,URINE 5.5 (5.0-8.0); PROTEIN,URINE 100 mg/dL (NEGATIVE)
[2024-08-09 18:43] LABS: BILIRUBIN,URINE SMALL (NEGATIVE); LEUKOCYTE ESTERASE,URINE NEGATIVE (NEGATIVE); NITRITE,URINE NEGATIVE (NEGATIVE); OCCULT BLOOD,URINE NEGATIVE (NEGATIVE); UROBILINOGEN,URINE 0.2 E.U./dL (0.2-1.0)
[2024-08-09 18:45] LABS: RBC,URINE NOT SEEN /HPF; WBC,URINE NOT SEEN /HPF
[2024-08-09 18:46] LABS: AMORPHOUS SEDIMENT,URINE MANY /HPF; CALCIUM OXALATE CRYSTALS,URINE MODERATE /HPF
[2024-08-09] MEDS ORDERED: Furosemide 20 MG Tab ONE (19:00)
[2024-08-10 00:44] VITALS: BP 126/73
== END 2024-08-09 19:45 | disposition home or self-care (01) ==
LOC: LB.ED 15:13
DX: R60.0 Localized edema (principal); E87.70 Fluid overload, unspecified; I50.9 Heart failure, unspecified; Z91.011 Allergy to milk products; Z91.048 Other nonmedicinal substance allergy status; Z79.899 Other long term (current) drug therapy
CPT/HCPCS: 36415; 51798; 71045; 80053; 81001; 85025; 85610; 99284; A9270

== ENCOUNTER 2024-08-23 17:21 | Emergency (ER) | payer MEDICARE ==
[2024-08-23] MEDS ORDERED: Sodium Chloride 0.9% 10 ML Syringe FLUSH PRN (18:49)
[2024-08-23 18:55] LABS: BASOPHILS ABSOLUTE AUTO 0.08 K/uL (0.02-0.10); BASOPHILS PERCENT AUTO 1.2 % (0.0-0.5); EOSINOPHILS ABSOLUTE AUTO 0.12 K/uL (0.04-0.40); EOSINOPHILS PERCENT AUTO 1.8 % (1.0-5.0); HEMATOCRIT 35.9 % (40.0-54.0); HEMOGLOBIN 11.5 g/dL (13.0-18.0); LYMPHOCYTES ABSOLUTE AUTO 0.84 K/uL (1.50-4.00); LYMPHOCYTES PERCENT AUTO 12.7 % (20.0-40.0); MEAN CORPUSCULAR HEMOGLOBIN 27.5 pg (27.0-32.0); MEAN CORPUSCULAR VOLUME 86 fL (76-96); MEAN PLATELET VOLUME 9.6 fL (6.0-10.0); MONOCYTES ABSOLUTE AUTO 0.83 K/uL (0.20-0.80); MONOCYTES PERCENT AUTO 12.6 % (3.0-10.0); NEUTROPHILS ABSOLUTE AUTO 4.74 K/uL (2.00-7.50); NEUTROPHILS PERCENT AUTO 71.7 % (45.0-70.0); PLATELET COUNT,PLT 192 K/uL (150-400); RED BLOOD CELL COUNT 4.18 M/uL (4.50-6.50); RED CELL DISTRIBUTION WIDTH 15.9 % (11.0-16.0); WHITE BLOOD CELL COUNT,WBC 6.6 K/uL (4.0-11.0)
[2024-08-23] MEDS: Furosemide 40 MG/4 ML VIAL IVPUSH ONE ×2 (18:57→22:59)
[2024-08-23 19:01] LABS: INR 2.6 (1.0-3.5)
[2024-08-23 19:06] LABS: PROTHROMBIN TIME 25.6 sec (9.0-11.5)
[2024-08-23 19:11] LABS: A/G RATIO 0.9 (0.8-2.0); ALBUMIN 2.9 g/dL (3.4-5.0); ANION GAP 9.6 mmol/L (5.0-15.0); BUN/CREATININE RATIO 14.3 (6-25); CALCIUM 8.6 mg/dL (8.5-10.1); CARBON DIOXIDE,CO2 30.4 mmol/L (21.0-32.0); CREATININE 1.33 mg/dL (0.70-1.30); EST CRCL DRUG DOSING (CG) 61.8 mL/min; PROTEIN TOTAL,TP 6.1 g/dL (6.4-8.2)
[2024-08-23 19:16] LABS: TROPONIN I HIGH SENSITIVITY 25.4 pg/ml (<=60.4); TSH ULTRASENSITIVE 20.688 uIU/mL (0.358-3.740)
[2024-08-23 19:47] LABS: INFLUENZA A NAA NEGATIVE (NEGATIVE); INFLUENZA B NAA NEGATIVE (NEGATIVE)
[2024-08-23 19:48] LABS: CORONAVIRUS COVID-19 NAA NEGATIVE (NEGATIVE)
[2024-08-23] MEDS: Metoprolol Tartrate 25 MG Tab PO ONE (20:39)
[2024-08-23] MEDS: Potassium Chloride 20 MEQ Tab.ER PO ONE (21:00)
[2024-08-23] MEDS: Levothyroxine 150 MCG Tab PO ONE (21:01)
[2024-08-24] MEDS: Potassium Chloride 10 MEQ Tab.ER PO ONE (06:45)
[2024-08-24] MEDS: Furosemide 40 MG/4 ML VIAL IVPUSH ONE (06:45)
[2024-08-24] MEDS: Metoprolol Tartrate 25 MG Tab PO ONE ×2 (07:45→13:41)
[2024-08-24 09:08] LABS: APPEARANCE,URINE CLEAR (CLEAR); BILIRUBIN,URINE NEGATIVE (NEGATIVE); COLOR,URINE YELLOW; GLUCOSE,URINE NEGATIVE (NEGATIVE); KETONES,URINE NEGATIVE (NEGATIVE); LEUKOCYTE ESTERASE,URINE NEGATIVE (NEGATIVE); NITRITE,URINE NEGATIVE (NEGATIVE); OCCULT BLOOD,URINE NEGATIVE (NEGATIVE); PROTEIN,URINE NEGATIVE (NEGATIVE); UROBILINOGEN,URINE 0.2 E.U./dL (0.2-1.0)
[2024-08-24 09:59] LABS: ANION GAP -7.9 mmol/L (5.0-15.0); CALCIUM 8.3 mg/dL (8.5-10.1); CARBON DIOXIDE,CO2 32.4 mmol/L (21.0-32.0); CREATININE 1.38 mg/dL (0.70-1.30); EST CRCL DRUG DOSING (CG) 59.57 mL/min; POTASSIUM,K 3.5 mmol/L (3.5-5.1); TROPONIN I HIGH SENSITIVITY 25.2 pg/ml (<=60.4)
[2024-08-24 14:35] VITALS: BP 120/72; PULSE 102
[2024-08-29 14:13] LABS: B. BURGDORFERI IGG IMMUNOBLOT Negative (Negative); B. BURGDORFERI IGM IMMUNOBLOT Negative (Negative)
[2024-08-31 06:59] LABS: A. PHAGOCYTOPHILUM AB, IGG <1:80 (<1:80); BABESIA MICROTI IGG < 1:16 (< 1:16)
== END 2024-08-24 14:54 ==
LOC: LB.ED 17:21
DX: I11.0 Hypertensive heart disease with heart failure (principal); I50.9 Heart failure, unspecified; I48.3 Typical atrial flutter; M25.561 Pain in right knee; E03.9 Hypothyroidism, unspecified; E87.1 Hypo-osmolality and hyponatremia; J44.9 Chronic obstructive pulmonary disease, unspecified; Z79.899 Other long term (current) drug therapy; Z91.048 Other nonmedicinal substance allergy status; Z88.8 Allergy status to other drugs, medicaments and biological substances; Z91.011 Allergy to milk products
CPT/HCPCS: 0240U; 36415; 80048; 80053; 81003; 83880; 84439; 84443; 84484; 85025; 85610; 86140; 86618; 86666; 86753; 93005; 96374; 96376; 99285; 99285-25; A0425; A0428; A9270-GY; J1940

== ENCOUNTER 2024-09-10 17:59 | Inpatient (IN) | payer MEDICARE ==
[2024-09-10] MEDS: Sodium Chloride 0.9% 10 ML Syringe FLUSH PRN (19:40)
[2024-09-10 20:01] LABS: HEMATOCRIT 34.3 % (40.0-54.0); HEMOGLOBIN 10.9 g/dL (13.0-18.0); MEAN CORPUSCULAR HEMOGLOBIN 27.3 pg (27.0-32.0); MEAN CORPUSCULAR HGB CONC 31.8 g/dL (31.0-35.0); RED CELL DISTRIBUTION WIDTH 16.7 % (11.0-16.0); WHITE BLOOD CELL COUNT,WBC 5.6 K/uL (4.0-11.0)
[2024-09-10] MEDS: Albuterol/Ipratropium 3.0-0.5 MG/3 ML Neb Soln NEB SCH (20:03)
[2024-09-10] MEDS: Furosemide 40 MG/4 ML VIAL IVPUSH ONE (20:05)
[2024-09-10 20:16] LABS: ANION GAP 6.2 mmol/L (5.0-15.0); BUN/CREATININE RATIO 22.6 (6-25); CALCIUM 8.4 mg/dL (8.5-10.1); CARBON DIOXIDE,CO2 32.7 mmol/L (21.0-32.0); CREATININE 1.46 mg/dL (0.70-1.30); EST CRCL DRUG DOSING (CG) 56.3 mL/min; MAGNESIUM 1.8 mg/dL (1.8-2.4); POTASSIUM,K 3.9 mmol/L (3.5-5.1); TROPONIN I HIGH SENSITIVITY 23.4 pg/ml (<=60.4)
[2024-09-10 20:44] LABS: INFLUENZA A NAA NEGATIVE (NEGATIVE); INFLUENZA B NAA NEGATIVE (NEGATIVE); RESPIRATORY SYNCYTIAL VIR NAA NEGATIVE (NEGATIVE)
[2024-09-10] MEDS ORDERED: Warfarin** 1 MG TABLET PO SCH (20:45)
[2024-09-10 20:47] LABS: CORONAVIRUS COVID-19 NAA NEGATIVE (NEGATIVE)
[2024-09-10 21:03] LABS: INR 2.9 (1.0-3.5)
[2024-09-10 21:04] LABS: PROTHROMBIN TIME 28.1 sec (9.0-11.5)
[2024-09-10] MEDS: Furosemide 100 MG/10 ML SDV IV SCH (21:22)
[2024-09-10] MEDS: Furosemide 100 MG/10 ML SDV ONE (21:33)
[2024-09-10] MEDS: Albuterol/Ipratropium 3.0-0.5 MG/3 ML Neb Soln ONE (21:36)
[2024-09-10] MEDS: Doxycycline 100 MG Cap PO SCH (23:31)
[2024-09-11] MEDS: Albuterol/Ipratropium 3.0-0.5 MG/3 ML Neb Soln NEB SCH ×2 (00:49→02:58)
[2024-09-11] MEDS: Heparin Sodium 5,000 Units/ML Vial SUBCUT SCH (02:58)
[2024-09-11] MEDS: Levothyroxine 100 MCG Tab PO SCH (06:06)
[2024-09-11] MEDS: Aspirin 81 MG Tab.EC PO SCH (07:56)
[2024-09-11] MEDS: Potassium Chloride 10 MEQ Tab.ER PO SCH ×2 (07:56→10:58)
[2024-09-11] MEDS: Sertraline 50 MG Tab PO SCH (07:56)
[2024-09-11] MEDS ORDERED: DAPAGLIFLOZIN PROPANEDIOL 10 MG PO SCH (08:00)
[2024-09-11] MEDS ORDERED: Doxycycline 100 MG Cap PO SCH (08:00)
[2024-09-11] MEDS ORDERED: Non-Formulary Medication 1 Each (Magnesium [Magnesium] 250 MG Tablet) PO SCH ×2 (08:00)
[2024-09-11] MEDS: Digoxin 125 MCG Tab PO SCH (08:16)
[2024-09-11] MEDS: Metoprolol Tartrate 25 MG Tab PO SCH (08:17)
[2024-09-11 09:30] LABS: ANION GAP 8.6 mmol/L (5.0-15.0); CARBON DIOXIDE,CO2 35.6 mmol/L (21.0-32.0); POTASSIUM,K 3.2 mmol/L (3.5-5.1)
[2024-09-11 09:31] LABS: BUN/CREATININE RATIO 23.4 (6-25); CALCIUM 8.3 mg/dL (8.5-10.1); CREATININE 1.24 mg/dL (0.70-1.30); EST CRCL DRUG DOSING (CG) 66.29 mL/min
[2024-09-11] MEDS ORDERED: Furosemide 100 MG in Sodium Chloride 0.9% 100 ML IV ONE (16:00)
[2024-09-11] MEDS ORDERED: Furosemide 100 MG/10 ML SDV IV SCH (16:00)
[2024-09-11] MEDS: Furosemide 100 MG in Sodium Chloride 0.9% 100 ML IV ONE (16:40)
[2024-09-11] MEDS: Warfarin 5 MG Tab PO SCH (18:03)
[2024-09-11] MEDS: Gabapentin 300 MG Cap PO SCH (19:29)
[2024-09-11] MEDS: traZODone 100 MG Tab PO SCH (19:29)
[2024-09-11] MEDS: DAPAGLIFLOZIN PROPANEDIOL 10 MG PO SCH (22:00)
[2024-09-12 00:26] LABS: ANION GAP 10.5 mmol/L (5.0-15.0); BUN/CREATININE RATIO 21.2 (6-25); CALCIUM 7.8 mg/dL (8.5-10.1); CARBON DIOXIDE,CO2 33.9 mmol/L (21.0-32.0); CREATININE 1.18 mg/dL (0.70-1.30); EST CRCL DRUG DOSING (CG) 69.66 mL/min; POTASSIUM,K 3.4 mmol/L (3.5-5.1)
[2024-09-12] MEDS: Calcium Carbonate/Vitamin D3 1500 MG-400 Units Tab PO SCH (01:37)
[2024-09-12] MEDS: Magnesium Oxide 400 MG Tab PO SCH (08:27)
[2024-09-12 09:15] LABS: ANION GAP 10.9 mmol/L (5.0-15.0); BUN/CREATININE RATIO 19.8 (6-25); CARBON DIOXIDE,CO2 33.4 mmol/L (21.0-32.0); CREATININE 1.21 mg/dL (0.70-1.30); EST CRCL DRUG DOSING (CG) 67.93 mL/min; POTASSIUM,K 3.3 mmol/L (3.5-5.1)
[2024-09-12] MEDS ORDERED: Albuterol/Ipratropium 3.0-0.5 MG/3 ML Neb Soln NEB PRN (09:25)
[2024-09-12 15:22] LABS: INR 2.6 (1.0-3.5)
[2024-09-12 15:24] LABS: PROTHROMBIN TIME 25.9 sec (9.0-11.5)
[2024-09-12] MEDS: Potassium Chloride 20 MEQ Tab.ER PO ONE (16:13)
[2024-09-12] MEDS: Potassium Chloride 20 MEQ Tab.ER ONE (16:13)
[2024-09-12] MEDS: Furosemide 100 MG/10 ML SDV IV ONE (20:35)
[2024-09-12] MEDS: Furosemide 100 MG in Sodium Chloride 0.9% 90 ML IV ONE (20:36)
[2024-09-13 09:19] LABS: HEMATOCRIT 35.5 % (40.0-54.0); MEAN CORPUSCULAR HEMOGLOBIN 26.8 pg (27.0-32.0); MEAN PLATELET VOLUME 9.4 fL (6.0-10.0); RED BLOOD CELL COUNT 4.1 M/uL (4.50-6.50); RED CELL DISTRIBUTION WIDTH 17.1 % (11.0-16.0); WHITE BLOOD CELL COUNT,WBC 6.4 K/uL (4.0-11.0)
[2024-09-13 10:19] LABS: ANION GAP 10.9 mmol/L (5.0-15.0); BUN/CREATININE RATIO 21.1 (6-25); CALCIUM 8.2 mg/dL (8.5-10.1); CARBON DIOXIDE,CO2 31.7 mmol/L (21.0-32.0); CREATININE 1.47 mg/dL (0.70-1.30); EST CRCL DRUG DOSING (CG) 55.92 mL/min; MAGNESIUM 1.8 mg/dL (1.8-2.4); PHOSPHORUS 3.6 mg/dL (2.5-4.9); POTASSIUM,K 4.6 mmol/L (3.5-5.1)
[2024-09-13] MEDS: Bumetanide 2.5 MG/10 ML MDV IVPUSH SCH ×2 (11:05→19:31)
[2024-09-14] MEDS: Bumetanide 2.5 MG/10 ML MDV ONE (15:15)
[2024-09-15 10:00] LABS: ANION GAP 10.7 mmol/L (5.0-15.0); BUN/CREATININE RATIO 26.6 (6-25); CALCIUM 8.2 mg/dL (8.5-10.1); CREATININE 1.39 mg/dL (0.70-1.30); EST CRCL DRUG DOSING (CG) 59.14 mL/min; POTASSIUM,K 4.7 mmol/L (3.5-5.1)
[2024-09-15] MEDS: Bumetanide 1 MG/4 ML MDV IVPUSH SCH (17:55)
[2024-09-15] MEDS: Bumetanide 1 MG/4 ML MDV ONE (18:16)
[2024-09-16 09:53] LABS: BASOPHILS ABSOLUTE AUTO 0.07 K/uL (0.02-0.10); BASOPHILS PERCENT AUTO 1.3 % (0.0-0.5); EOSINOPHILS ABSOLUTE AUTO 0.25 K/uL (0.04-0.40); EOSINOPHILS PERCENT AUTO 4.5 % (1.0-5.0); HEMATOCRIT 34.7 % (40.0-54.0); HEMOGLOBIN 10.8 g/dL (13.0-18.0); LYMPHOCYTES ABSOLUTE AUTO 0.73 K/uL (1.50-4.00); LYMPHOCYTES PERCENT AUTO 13.3 % (20.0-40.0); MEAN CORPUSCULAR HEMOGLOBIN 26.6 pg (27.0-32.0); MEAN CORPUSCULAR HGB CONC 31.1 g/dL (31.0-35.0); MEAN CORPUSCULAR VOLUME 86 fL (76-96); MEAN PLATELET VOLUME 9.9 fL (6.0-10.0); MONOCYTES PERCENT AUTO 14.5 % (3.0-10.0); NEUTROPHILS ABSOLUTE AUTO 3.65 K/uL (2.00-7.50); NEUTROPHILS PERCENT AUTO 66.4 % (45.0-70.0); PLATELET COUNT,PLT 154 K/uL (150-400); RED BLOOD CELL COUNT 4.06 M/uL (4.50-6.50); RED CELL DISTRIBUTION WIDTH 16.7 % (11.0-16.0); WHITE BLOOD CELL COUNT,WBC 5.5 K/uL (4.0-11.0)
[2024-09-16 10:13] LABS: A/G RATIO 0.8 (0.8-2.0); ALBUMIN 2.5 g/dL (3.4-5.0); ANION GAP 8.5 mmol/L (5.0-15.0); BUN/CREATININE RATIO 25.4 (6-25); CALCIUM 7.6 mg/dL (8.5-10.1); CARBON DIOXIDE,CO2 35.7 mmol/L (21.0-32.0); CREATININE 1.34 mg/dL (0.70-1.30); EST CRCL DRUG DOSING (CG) 61.34 mL/min; POTASSIUM,K 3.2 mmol/L (3.5-5.1); PROTEIN TOTAL,TP 5.5 g/dL (6.4-8.2)
[2024-09-16 12:14] VITALS: BP 99/52; PULSE 67
[2024-09-16] MEDS ORDERED: Warfarin 7.5 MG Tab PO SCH (18:00)
== END 2024-09-16 14:35 | DRG 291 ==
LOC: LB.ED 17:59 → LB.MS 21:40
PROVIDERS: ADMIT Surgery; ATTEND Surgery
DX: I11.0 Hypertensive heart disease with heart failure (principal); I50.33 Acute on chronic diastolic (congestive) heart failure; I48.3 Typical atrial flutter; Z86.39 Personal history of other endocrine, nutritional and metabolic disease; E87.70 Fluid overload, unspecified; H54.7 Unspecified visual loss; I48.91 Unspecified atrial fibrillation; I10 Essential (primary) hypertension; G47.30 Sleep apnea, unspecified; J44.9 Chronic obstructive pulmonary disease, unspecified; Z91.041 Radiographic dye allergy status; Z91.048 Other nonmedicinal substance allergy status; F32.A Depression, unspecified; E03.9 Hypothyroidism, unspecified; F15.90 Other stimulant use, unspecified, uncomplicated; E87.6 Hypokalemia; E83.51 Hypocalcemia; K21.9 Gastro-esophageal reflux disease without esophagitis; Z79.02 Long term (current) use of antithrombotics/antiplatelets; Z86.16 Personal history of COVID-19; Z87.81 Personal history of (healed) traumatic fracture; Z90.89 Acquired absence of other organs; Z88.8 Allergy status to other drugs, medicaments and biological substances; Z88.9 Allergy status to unspecified drugs, medicaments and biological substances; Z91.011 Allergy to milk products; Z79.51 Long term (current) use of inhaled steroids; Z79.82 Long term (current) use of aspirin; Z79.01 Long term (current) use of anticoagulants; Z79.1 Long term (current) use of non-steroidal anti-inflammatories (NSAID); Z79.2 Long term (current) use of antibiotics; Z79.899 Other long term (current) drug therapy; Z98.890 Other specified postprocedural states; Z95.2 Presence of prosthetic heart valve; Z87.891 Personal history of nicotine dependence
CPT/HCPCS: 0241U; 36415; 51702; 71045; 80048; 80053; 82947; 83735; 83880; 84100; 84443; 84484; 85025; 85027; 85610; 93005; 94640; 96374; 99285; 93010; A0425; A0428; A9270-GY; J1939; J1940; J3490; J7620

== ENCOUNTER 2024-10-11 10:43 | Emergency (ER) | payer MEDICARE ==
[2024-10-11 11:48] LABS: BASOPHILS ABSOLUTE AUTO 0.14 K/uL (0.02-0.10); BASOPHILS PERCENT AUTO 2.8 % (0.0-0.5); EOSINOPHILS ABSOLUTE AUTO 0.28 K/uL (0.04-0.40); EOSINOPHILS PERCENT AUTO 5.6 % (1.0-5.0); HEMATOCRIT 27.6 % (40.0-54.0); HEMOGLOBIN 8.5 g/dL (13.0-18.0); LYMPHOCYTES ABSOLUTE AUTO 0.89 K/uL (1.50-4.00); LYMPHOCYTES PERCENT AUTO 17.9 % (20.0-40.0); MEAN CORPUSCULAR HEMOGLOBIN 28.1 pg (27.0-32.0); MEAN CORPUSCULAR HGB CONC 30.8 g/dL (31.0-35.0); MEAN CORPUSCULAR VOLUME 91 fL (76-96); MEAN PLATELET VOLUME 8.9 fL (6.0-10.0); MONOCYTES ABSOLUTE AUTO 0.96 K/uL (0.20-0.80); MONOCYTES PERCENT AUTO 19.3 % (3.0-10.0); NEUTROPHILS PERCENT AUTO 54.4 % (45.0-70.0); PLATELET COUNT,PLT 319 K/uL (150-400); RED BLOOD CELL COUNT 3.02 M/uL (4.50-6.50); RED CELL DISTRIBUTION WIDTH 19.7 % (11.0-16.0)
[2024-10-11 11:52] LABS: APPEARANCE,URINE CLEAR (CLEAR); BILIRUBIN,URINE NEGATIVE (NEGATIVE); COLOR,URINE YELLOW; GLUCOSE,URINE NEGATIVE (NEGATIVE); KETONES,URINE NEGATIVE (NEGATIVE); LEUKOCYTE ESTERASE,URINE NEGATIVE (NEGATIVE); NITRITE,URINE NEGATIVE (NEGATIVE); OCCULT BLOOD,URINE NEGATIVE (NEGATIVE); PROTEIN,URINE NEGATIVE (NEGATIVE); UROBILINOGEN,URINE 0.2 E.U./dL (0.2-1.0)
[2024-10-11 12:00] LABS: INR 1.6 (1.0-3.5)
[2024-10-11 12:01] LABS: PROTHROMBIN TIME 16.1 sec (9.0-11.5)
[2024-10-11 12:04] LABS: A/G RATIO 0.7 (0.8-2.0); ALBUMIN 2.9 g/dL (3.4-5.0); ANION GAP 7.4 mmol/L (5.0-15.0); BILIRUBIN TOTAL 0.6 mg/dL (0.0-1.0); BUN/CREATININE RATIO 19.6 (6-25); CALCIUM 8.7 mg/dL (8.5-10.1); CARBON DIOXIDE,CO2 33.1 mmol/L (21.0-32.0); CREATININE 0.92 mg/dL (0.70-1.30); EST CRCL DRUG DOSING (CG) 89.35 mL/min; POTASSIUM,K 4.5 mmol/L (3.5-5.1); PROTEIN TOTAL,TP 7.1 g/dL (6.4-8.2)
[2024-10-11] MEDS: Metoprolol Tartrate 50 MG Tab PO ONE (13:35)
[2024-10-11] MEDS: Furosemide 20 MG/2 ML VIAL IVPUSH ONE (17:12)
[2024-10-11] MEDS: Warfarin 7.5 MG Tab PO ONE (17:31)
[2024-10-11] MEDS: Warfarin 5 MG Tab PO ONE (17:31)
[2024-10-11] MEDS: Warfarin 5 MG Tab ONE (17:32)
[2024-10-11] MEDS: Metoprolol Tartrate 25 MG Tab PO ONE (19:37)
[2024-10-11 19:51] VITALS: BP 108/55; PULSE 95
[2024-10-11 19:53] LABS: BASOPHILS ABSOLUTE AUTO 0.11 K/uL (0.02-0.10); BASOPHILS PERCENT AUTO 2.3 % (0.0-0.5); EOSINOPHILS ABSOLUTE AUTO 0.29 K/uL (0.04-0.40); HEMATOCRIT 31.6 % (40.0-54.0); HEMOGLOBIN 9.9 g/dL (13.0-18.0); LYMPHOCYTES ABSOLUTE AUTO 1.29 K/uL (1.50-4.00); LYMPHOCYTES PERCENT AUTO 26.7 % (20.0-40.0); MEAN CORPUSCULAR HEMOGLOBIN 28.3 pg (27.0-32.0); MEAN CORPUSCULAR HGB CONC 31.3 g/dL (31.0-35.0); MEAN CORPUSCULAR VOLUME 90 fL (76-96); MONOCYTES ABSOLUTE AUTO 0.85 K/uL (0.20-0.80); MONOCYTES PERCENT AUTO 17.6 % (3.0-10.0); NEUTROPHILS PERCENT AUTO 47.4 % (45.0-70.0); PLATELET COUNT,PLT 310 K/uL (150-400); RED CELL DISTRIBUTION WIDTH 19.1 % (11.0-16.0); WHITE BLOOD CELL COUNT,WBC 4.8 K/uL (4.0-11.0)
== END 2024-10-11 20:20 | disposition home or self-care (01) ==
LOC: LB.ED 10:43
DX: I48.91 Unspecified atrial fibrillation (principal); D64.9 Anemia, unspecified; I11.0 Hypertensive heart disease with heart failure; I50.9 Heart failure, unspecified; J44.9 Chronic obstructive pulmonary disease, unspecified; E03.9 Hypothyroidism, unspecified; Z95.2 Presence of prosthetic heart valve; Z90.89 Acquired absence of other organs; Z91.048 Other nonmedicinal substance allergy status; Z79.01 Long term (current) use of anticoagulants; Z79.82 Long term (current) use of aspirin; Z79.890 Hormone replacement therapy; Z79.899 Other long term (current) drug therapy
CPT/HCPCS: 36415; 36430; 71046; 80053; 81003; 84484; 85025; 85610; 85730; 86850; 86900; 86901; 86920; 86922; 93005; 96374; 99285-25; A9270-GY; J1940; P9016